=== PATIENT | female | born 1985 | race Caucasian/White ===

== ENCOUNTER 2017-10-03 16:34 | Emergency (ER) | payer OTHER, MEDICAID ==
[~2017-10-03] VITALS: Ht 165.1 cm; Wt 49.9 kg
[2017-10-03 16:36] VITALS: BP_SYST 112
--- NOTE | 2017-10-03 16:47 | NUR ---
Ambulatory to hallway bed 1. Report given to RICARDO Gutierrez
--- NOTE | 2017-10-03 17:02 | NUR ---
Pt moved from [facility] to room #3.
[2017-10-03] MEDS ORDERED: NACL 0.9% 1,000 ML IV ONE (17:19)
--- NOTE | 2017-10-03 17:25 | NUR ---
Pt arrived with upper right chest lorri-cath. Pt gave consent to use and MD alexander for use for blood drawl and med infusion.
[2017-10-03 17:28] LABS: BILIRUBIN,URINE NEGATIVE (NEGATIVE); BLOOD, URINE NEGATIVE (NEGATIVE); CLARITY/URINE CLEAR (CLEAR); COLOR,URINE YELLOW (YELLOW); GLUCOSE,URINE NEGATIVE (NEGATIVE); KETONES,URINE NEGATIVE (NEGATIVE); LEUKOCYTE ESTERASE ,URINE NEGATIVE (NEGATIVE); NITRITE, URINE NEGATIVE (NEGATIVE); PH,URINE 5.5 (5.0-8.0); PROTEIN URINE NEGATIVE (NEGATIVE); UROBILINOGEN,URINE 0.2 (0.2-1.0)
[2017-10-03] MEDS ORDERED: ONDANSETRON HCL 4 MG/2 ML VIAL IVP ONE (17:30)
[2017-10-03] MEDS ORDERED: MORPHINE 4 MG/ML INJ. SYRINGE IVP ONE ×2 (17:30→22:15)
--- NOTE | 2017-10-03 18:34 | NUR ---
ER Dr. Warner at bedside examining patient.
[2017-10-03 18:40] LABS: BASOPHILS % (AUTO) 0.2 % (0.0-2.0); EOSINOPHILS # (AUTO) 0.1 K/uL (0.0-0.4); EOSINOPHILS % (AUTO) 1.8 % (0.0-4.0); LYMPHOCYTES # (AUTO) 2.1 K/uL (1.0-5.5); MONOCYTES % (AUTO) 7.1 % (1.7-9.3); NEUTROPHILS # (AUTO) 2.4 K/uL (1.8-7.7)
[2017-10-03 18:43] LABS: HEMATOCRIT 26.9 % (36-48); HEMOGLOBIN 8.9 g/dL (12.0-16.0); LYMPHOCYTES % (AUTO) 42.1 % (20.5-51.5); MEAN CORPUSCULAR HEMOGLOBIN 29 pg (27-31); MEAN CORPUSCULAR HGB CONC 33 % (32-36); MEAN CORPUSCULAR VOLUME 88 fL (79.0-98.0); MONOCYTES # (AUTO) 0.4 K/uL (0.0-1.0); NEUTROPHILS % (AUTO) 48.8 % (40.0-70.0); PLATELET COUNT (AUTO) 290 K/uL (130-430); RED BLOOD CELL COUNT(AUTO) 3.05 MIL/uL (4.2-6.2); RED CELL DISTRIBUTION WIDTH 13.5 % (9.0-15.0)
[2017-10-03 18:56] LABS: CALCIUM 8.5 mg/dL (8.4-11.0); CREATININE 0.56 mg/dL (0.55-1.30); POTASSIUM 3.8 mmol/L (3.5-5.1)
[2017-10-03 19:00] LABS: ALBUMIN 3.6 g/dL (3.4-4.8); TOTAL BILIRUBIN 0.4 mg/dL (0.0-1.0)
[2017-10-03] MEDS ORDERED: DIPHENHYDRAMINE INJ 50 MG/ML VIAL IVP ONE ×2 (19:00→22:45)
--- NOTE | 2017-10-03 19:10 | NUR ---
Pt restig in bed. No complaints of distress of injury. Vital signs stable, endorsed to night RN.
--- NOTE | 2017-10-03 19:49 | NUR ---
ER Dr. Paredes at bedside examining patient.
[2017-10-03] MEDS ORDERED: LORazepam 2 MG/ML VIAL (FOR ER USE) ONE (20:59)
--- NOTE | 2017-10-03 21:00 | NUR ---
Patient transported off unit for CT of ABD. Accompanied by radiology staff.
--- NOTE | 2017-10-03 21:13 | NUR ---
Patient returned to unit.
[2017-10-03] MEDS ORDERED: LORazepam 2 MG/ML VIAL IVP ONE (21:30)
--- NOTE | 2017-10-03 22:25 | NUR ---
Patient found walking in hallway and speaking to other patient, re-educated and reiterated safety and fall precautions after morphine administration. Patient assisted back to bed. Will continue to monitor.
[2017-10-03] MEDS ORDERED: FAMOTIDINE PF 20 MG/2 ML VIAL IVP ONE (23:00)
[2017-10-03 23:08] VITALS: BP_SYST 110
--- NOTE | 2017-10-03 23:08 | NUR ---
Patient given written and verbal discharge instructions and verbalizes understanding. ER MD discussed with patient the results and treatment provided. Patient in stable condition. ID arm band removed. Rx of Bisacodyl given. Patient educated on pain management and to follow up with PMD. Pain Scale 3/10. Opportunity for questions provided and answered. Medication side effect fact sheet provided.
--- NOTE | 2017-10-03 23:10 | NUR ---
Patient's discharge papers were found in the trash bin when cleaning the gurney from which the patient was discharged. Incident reported to Charge Nurse Estelle SILVA and papers put into shredding bin.
--- NOTE | 2017-10-03 23:10 | NUR ---
Informed by EMT Jostin, patient discharge paperwork found in trash can following discharge.
== END 2017-10-03 23:10 | disposition home or self-care (01) ==
LOC: SED 16:34
DX: K59.00 Constipation, unspecified (principal); Z76.5 Malingerer [conscious simulation]; Z90.49 Acquired absence of other specified parts of digestive tract; Z88.0 Allergy status to penicillin; Z88.2 Allergy status to sulfonamides; Z88.6 Allergy status to analgesic agent; Z88.5 Allergy status to narcotic agent; Z91.040 Latex allergy status; Z88.8 Allergy status to other drugs, medicaments and biological substances
CPT/HCPCS: 36415; 74176; 80053; 81003; 83690; 85025; 96361; 96374; 96375; 96376; 99285; J1200; J2060; J2270; J2405; J3490; J7030

== ENCOUNTER 2017-11-18 18:19 | Inpatient (IN) | payer OTHER, MEDICAID ==
[~2017-11-18] VITALS: Ht 165.1 cm; Wt 49.9 kg
[2017-11-18 18:22] VITALS: BP_SYST 104
[2017-11-18] MEDS ORDERED: ONDANSETRON HCL 4 MG/2 ML VIAL IVP ONE (19:15)
[2017-11-18] MEDS ORDERED: NACL 0.9% 1,000 ML IV ONE (19:15)
[2017-11-18] MEDS ORDERED: fentaNYL CITRATE/PF 100 MCG/2 ML AMP IVP ONE (19:15)
[2017-11-18 19:43] LABS: BASOPHILS # (AUTO) 0.1 K/uL (0.0-0.2); MONOCYTES # (AUTO) 0.4 K/uL (0.0-1.0); RED BLOOD CELL COUNT(AUTO) 3.92 MIL/uL (4.2-6.2)
[2017-11-18 19:46] LABS: BASOPHILS % (AUTO) 2.6 % (0.0-2.0); EOSINOPHILS # (AUTO) 0.1 K/uL (0.0-0.4); EOSINOPHILS % (AUTO) 1.2 % (0.0-4.0); HEMATOCRIT 33.8 % (36-48); HEMOGLOBIN 11.3 g/dL (12.0-16.0); LYMPHOCYTES # (AUTO) 1.4 K/uL (1.0-5.5); LYMPHOCYTES % (AUTO) 32.2 % (20.5-51.5); MEAN CORPUSCULAR HEMOGLOBIN 29 pg (27-31); MEAN CORPUSCULAR HGB CONC 34 % (32-36); MEAN CORPUSCULAR VOLUME 86 fL (79.0-98.0); MONOCYTES % (AUTO) 8.5 % (1.7-9.3); NEUTROPHILS # (AUTO) 2.4 K/uL (1.8-7.7); NEUTROPHILS % (AUTO) 55.5 % (40.0-70.0); PLATELET COUNT (AUTO) 533 K/uL (130-430); RED CELL DISTRIBUTION WIDTH 16.2 % (9.0-15.0); WHITE BLOOD COUNT (AUTO) 4.4 K/uL (4.8-10.8)
[2017-11-18 19:53] LABS: CALCIUM 9.6 mg/dL (8.4-11.0); CREATININE 0.72 mg/dL (0.55-1.30)
[2017-11-18 19:55] LABS: PROTHROMBIN TIME 10.4 SECS (9.5-12.5)
[2017-11-18 19:58] LABS: ALBUMIN 3.6 g/dL (3.4-4.8); TOTAL BILIRUBIN 0.2 mg/dL (0.0-1.0)
[2017-11-18 20:15] LABS: BILIRUBIN,URINE NEGATIVE (NEGATIVE); BLOOD, URINE NEGATIVE (NEGATIVE); CLARITY/URINE HAZY (CLEAR); COLOR,URINE YELLOW (YELLOW); GLUCOSE,URINE NEGATIVE (NEGATIVE); KETONES,URINE NEGATIVE (NEGATIVE); LEUKOCYTE ESTERASE ,URINE NEGATIVE (NEGATIVE); NITRITE, URINE NEGATIVE (NEGATIVE); PH,URINE 7.5 (5.0-8.0); PROTEIN URINE TRACE (NEGATIVE); UROBILINOGEN,URINE 0.2 (0.2-1.0)
[2017-11-18 20:28] LABS: RBC,URINE NONE SEEN /HPF (0-3); WBC,URINE 0-3 /HPF (0-3)
[2017-11-18 20:29] LABS: BACTERIA,URINE MANY /HPF (None Seen); MUCUS,URINE 2+ /LPF (None Seen); URINE AMORPHOUS PHOSPHATES 1+ /HPF (None Seen)
[2017-11-18] MEDS ORDERED: MORPHINE 4 MG/ML INJ. SYRINGE IVP ONE (21:15)
[2017-11-18] MEDS ORDERED: DIPHENHYDRAMINE INJ 50 MG/ML VIAL IVP ONE (21:15)
[2017-11-18] MEDS: VANCOMYCIN HCL 250 MG CAPSULE PO SCH (22:15)
[2017-11-18] MEDS ORDERED: MORPHINE 2 MG/ML INJ. SYRINGE IVP PRN (22:15)
[2017-11-18] MEDS ORDERED: ONDANSETRON HCL 4 MG/2 ML VIAL IVP PRN (22:15)
[2017-11-18 22:25] VITALS: BP_SYST 106
[2017-11-18] MEDS ORDERED: LEVOFLOXACIN 500 MG/D5W 100 ML IV SCH (22:30)
[2017-11-18] MEDS ORDERED: LEVOFLOXACIN 500 MG/D5W 100 ML IV ONE (23:16)
[2017-11-18] MEDS: D5NS 1,000 ML IV SCH (23:59)
[2017-11-19] MEDS: MORPHINE 4 MG/ML INJ. SYRINGE IVP PRN ×6 (00:28→20:53)
[2017-11-19 08:10] VITALS: BP_SYST 97
[2017-11-19] MEDS: VANCOMYCIN HCL 250 MG CAPSULE PO SCH (08:57)
[2017-11-19] MEDS ORDERED: MORPHINE 4 MG/ML INJ. SYRINGE IVP PRN (11:30)
[2017-11-19] MEDS: DIPHENHYDRAMINE INJ 50 MG/ML VIAL IVP PRN ×2 (11:45→17:48)
[2017-11-19] MEDS: D5NS 1,000 ML IV SCH ×2 (11:45→18:15)
[2017-11-19 12:53] VITALS: BP_SYST 100
[2017-11-19 20:05] VITALS: BP_SYST 128
[2017-11-19] MEDS: LACTOBACILLUS RHAMNOSUS GG 1 CAP CAPSULE PO SCH (20:54)
[2017-11-19] MEDS: DIPHENHYDRAMINE INJ 50 MG/ML VIAL IVP SCH (21:18)
[2017-11-19] MEDS: metroNIDAZOLE 500 mg/NS 100 ML IV SCH (21:19)
[2017-11-19] MEDS ORDERED: metroNIDAZOLE 250 MG TABLET PO SCH (22:00)
[2017-11-20] MEDS: MORPHINE 4 MG/ML INJ. SYRINGE IVP PRN ×4 (01:36→13:32)
[2017-11-20] MEDS: D5NS 1,000 ML IV SCH ×2 (04:15→13:30)
[2017-11-20] MEDS: DIPHENHYDRAMINE INJ 50 MG/ML VIAL IVP SCH (06:10)
[2017-11-20] MEDS: metroNIDAZOLE 500 mg/NS 100 ML IV SCH ×2 (06:10→13:31)
[2017-11-20] MEDS: LACTOBACILLUS RHAMNOSUS GG 1 CAP CAPSULE PO SCH (08:55)
[2017-11-20 08:56] VITALS: BP_SYST 105
[2017-11-20 12:11] VITALS: BP_SYST 105
[2017-11-20] MEDS ORDERED: COMMUNICATION ORDER XX ONE (13:30)
[2017-11-20] MEDS ORDERED: FAMOTIDINE PF 20 MG/2 ML VIAL IVP ONE (13:30)
[2017-11-20] MEDS ORDERED: DIPHENHYDRAMINE INJ 50 MG/ML VIAL IVP SCH (13:55)
[2017-11-20] MEDS ORDERED: LORazepam 1 MG TABLET PO PRN (14:45)
[2017-11-20] MEDS ORDERED: FAMOTIDINE PF 20 MG/2 ML VIAL IVP SCH (22:00)
== END 2017-11-20 15:40 | disposition left against medical advice (07) | DRG 372 ==
LOC: SED 18:19 → SMU 21:58
PROVIDERS: ADMIT Internal Medicine Hospice and Palliative Medicine; ATTEND Internal Medicine Hospice and Palliative Medicine
DX: A04.71 Enterocolitis due to Clostridium difficile, recurrent (principal); N39.0 Urinary tract infection, site not specified; K86.1 Other chronic pancreatitis; K75.4 Autoimmune hepatitis; F68.10 Factitious disorder imposed on self, unspecified; F41.9 Anxiety disorder, unspecified; K21.9 Gastro-esophageal reflux disease without esophagitis; F60.9 Personality disorder, unspecified; Z96.89 Presence of other specified functional implants; Z53.21 Procedure and treatment not carried out due to patient leaving prior to being seen by health care provider; G89.4 Chronic pain syndrome; Z88.0 Allergy status to penicillin; Z88.1 Allergy status to other antibiotic agents; Z88.8 Allergy status to other drugs, medicaments and biological substances; Z88.5 Allergy status to narcotic agent; Z88.6 Allergy status to analgesic agent; Z91.040 Latex allergy status; Z90.49 Acquired absence of other specified parts of digestive tract
CPT/HCPCS: 36415; 71045; 80053; 81000-TC; 81025; 83605; 83690-TC; 84484; 85025; 85610-TC; 85730-TC; 87040-TC; 87081; 87086; 93005; 96361; 96374; 96375; 99285; J1200; J1956; J2270; J2405; J3010; J3490; J7030; J7042

== ENCOUNTER 2018-08-19 10:43 | Emergency (ER) | payer OTHER, MEDICAID ==
[~2018-08-19] VITALS: Ht 165.1 cm; Wt 49.9 kg
[2018-08-19 10:47] VITALS: BP_SYST 104
[2018-08-19] MEDS ORDERED: LORazepam 2 MG/ML VIAL (FOR ER USE) IVP ONE (11:15)
[2018-08-19] MEDS ORDERED: ONDANSETRON HCL 4 MG/2 ML VIAL IVP ONE (11:15)
[2018-08-19] MEDS ORDERED: DIPHENHYDRAMINE INJ 50 MG/ML VIAL IVP ONE (11:15)
[2018-08-19] MEDS ORDERED: NACL 0.9% 1,000 ML IV ONE (11:15)
[2018-08-19] MEDS ORDERED: FAMOTIDINE PF 20 MG/2 ML VIAL IVP ONE (11:15)
[2018-08-19 11:54] LABS: CALCIUM 8.4 mg/dL (8.4-11.0); CREATININE 0.69 mg/dL (0.55-1.30)
[2018-08-19 11:56] LABS: BASOPHILS # (AUTO) 0.1 K/uL (0.0-0.2); EOSINOPHILS # (AUTO) 0.1 K/uL (0.0-0.4); LYMPHOCYTES # (AUTO) 1.5 K/uL (1.0-5.5); MONOCYTES # (AUTO) 0.2 K/uL (0.0-1.0)
[2018-08-19 11:59] LABS: BASOPHILS % (AUTO) 1.5 % (0.0-2.0); EOSINOPHILS % (AUTO) 2.4 % (0.0-4.0); HEMATOCRIT 32.4 % (36-48); HEMOGLOBIN 10.8 g/dL (12.0-16.0); LYMPHOCYTES % (AUTO) 39.8 % (20.5-51.5); MEAN CORPUSCULAR HEMOGLOBIN 31 pg (27-31); MEAN CORPUSCULAR HGB CONC 33 % (32-36); MEAN CORPUSCULAR VOLUME 93 fL (79.0-98.0); MONOCYTES % (AUTO) 6.1 % (1.7-9.3); NEUTROPHILS % (AUTO) 50.2 % (40.0-70.0); PLATELET COUNT (AUTO) 220 K/uL (130-430); RED BLOOD CELL COUNT(AUTO) 3.48 MIL/uL (4.2-6.2); RED CELL DISTRIBUTION WIDTH 13.4 % (9.0-15.0); WHITE BLOOD COUNT (AUTO) 3.9 K/uL (4.8-10.8)
[2018-08-19 12:00] LABS: ALBUMIN 3.7 g/dL (3.4-4.8); TOTAL BILIRUBIN 0.2 mg/dL (0.0-1.0)
[2018-08-19] MEDS ORDERED: MORPHINE 4 MG/ML INJ. SYRINGE IVP ONE (12:30)
[2018-08-19 12:57] VITALS: BP_SYST 112
== END 2018-08-19 12:57 | disposition home or self-care (01) ==
LOC: SED 10:43
DX: K85.90 Acute pancreatitis without necrosis or infection, unspecified (principal); G43.709 Chronic migraine without aura, not intractable, without status migrainosus; K21.9 Gastro-esophageal reflux disease without esophagitis; Z86.2 Personal history of diseases of the blood and blood-forming organs and certain disorders involving the immune mechanism; Z90.49 Acquired absence of other specified parts of digestive tract; Z88.1 Allergy status to other antibiotic agents; Z88.0 Allergy status to penicillin; Z88.2 Allergy status to sulfonamides; Z88.5 Allergy status to narcotic agent; Z88.6 Allergy status to analgesic agent; Z91.040 Latex allergy status; Z88.8 Allergy status to other drugs, medicaments and biological substances
CPT/HCPCS: 36415; 80053; 83690; 85025; 96361; 96374; 96375; 99283; J1200; J2060; J2270; J2405; J3490; J7030

== ENCOUNTER 2018-09-03 09:54 | Emergency (ER) | payer OTHER, MEDICAID ==
[~2018-09-03] VITALS: Ht 165.1 cm; Wt 50.8 kg
[2018-09-03 09:55] VITALS: BP_SYST 119
--- NOTE | 2018-09-03 09:55 | NUR ---
BROUGHT BACK TO BED #5 AND TRIAGED. REPORT GIVEN TO DUC
--- NOTE | 2018-09-03 10:00 | NUR ---
PATIENT SITTING UP ON BED. NO SOB. NO CHEST PAIN. PATIENT IN NO ACUTE DISTRESS. NO OBJECTIVE S/SX OF PAIN OBSERVED. PT WITH C/O HEADACHE, RIGHT FLANK PAIN, AND EPIGASTRIC DISCOMFORT x4 DAYS. +NAUSEA, +VOMITING. NO DIARRHEA. NO FEVERS. PT ALSO REQUESTING A NEEDLE CHANGE FOR HER PORT-A-CATH. PATIENT RESTING COMFORTABLY ON BED. REST, RELAXATION, AND DEEP BREATHING ENCOURAGED. MD AWARE OF PT CONDITION AND CHIEF COMPLAINT. WILL CONTINUE TO MONITOR.
--- NOTE | 2018-09-03 10:10 | NUR ---
IRMA BHATIA at bedside examining patient.
[2018-09-03] MEDS ORDERED: NACL 0.9% 1,000 ML IV ONE (10:15)
[2018-09-03] MEDS ORDERED: MORPHINE 4 MG/ML INJ. SYRINGE IVP ONE ×2 (10:15→11:15)
--- NOTE | 2018-09-03 10:40 | NUR ---
IV FLUIDS OF NS STARTED PER MD ORDERS. TOLERATED WELL. MORPHINE ADMINISTERED FOR PAIN. TOLERATED WELL. WILL CONTINUE TO MONITOR. SIDERAILS UP x2. PATIENT PLACED ON O2 MONITOR.
--- NOTE | 2018-09-03 10:45 | NUR ---
BLOOD SPECIMENS COLLECTED FROM PT'S PORT-A-CATH. TOLERATED WELL. BLOOD SPECIMENS SENT TO LAB. PORT-A-CATH FLUSHED WITH 10ML NS; PATENT. TOLERATED WELL.
[2018-09-03 10:57] LABS: BASOPHILS % (AUTO) 0.5 % (0.0-2.0); EOSINOPHILS # (AUTO) 0.1 K/uL (0.0-0.4); EOSINOPHILS % (AUTO) 2.9 % (0.0-4.0); HEMATOCRIT 34.3 % (36-48); HEMOGLOBIN 11.4 g/dL (12.0-16.0); LYMPHOCYTES # (AUTO) 1.4 K/uL (1.0-5.5); LYMPHOCYTES % (AUTO) 37.7 % (20.5-51.5); MEAN CORPUSCULAR HEMOGLOBIN 31 pg (27-31); MEAN CORPUSCULAR HGB CONC 33 % (32-36); MEAN CORPUSCULAR VOLUME 93 fL (79.0-98.0); MONOCYTES # (AUTO) 0.3 K/uL (0.0-1.0); MONOCYTES % (AUTO) 7.5 % (1.7-9.3); NEUTROPHILS % (AUTO) 51.4 % (40.0-70.0); PLATELET COUNT (AUTO) 227 K/uL (130-430); RED CELL DISTRIBUTION WIDTH 12.9 % (9.0-15.0); WHITE BLOOD COUNT (AUTO) 3.8 K/uL (4.8-10.8)
[2018-09-03 11:03] LABS: CALCIUM 8.7 mg/dL (8.4-11.0); CREATININE 0.53 mg/dL (0.55-1.30); POTASSIUM 4.3 mmol/L (3.5-5.1)
[2018-09-03 11:08] LABS: ALBUMIN 3.8 g/dL (3.4-4.8); TOTAL BILIRUBIN 0.4 mg/dL (0.0-1.0)
[2018-09-03] MEDS ORDERED: FAMOTIDINE 20 MG TABLET PO ONE (11:15)
[2018-09-03] MEDS ORDERED: DIPHENHYDRAMINE INJ 50 MG/ML VIAL IVP ONE (11:15)
[2018-09-03] MEDS ORDERED: FAMOTIDINE PF 20 MG/2 ML VIAL IVP ONE (11:30)
--- NOTE | 2018-09-03 11:40 | NUR ---
MORPHINE, BENADRYL, AND PEPCID IVP ADMINISTERED. TOLERATED WELL. WILL CONTINUE TO MONITOR.
--- NOTE | 2018-09-03 11:50 | NUR ---
PATIENT VERBALIZED RELIEF FROM NAUSEA AND EPIGASTRIC DISCOMFORT. NO EPISODE OF VOMITING. WILL CONTINUE TO MONITOR.
--- NOTE | 2018-09-03 12:00 | NUR ---
PER PT REQUEST, RIGHT UPPER CHEST PORT-A-CATH NEEDLE CHANGED TO A 20G x 1.0 INCH MINILOC NEEDLE VIA STERILE TECHNIQUE. TOLERATED WELL. PORT-A-CATH NOTED WITH GOOD BLOOD RETURN. FLUSHED WITH 20ML OF NS. TOLERATED WELL.
[2018-09-03 12:10] VITALS: BP_SYST 123
--- NOTE | 2018-09-03 12:10 | NUR ---
Patient given written and verbal discharge instructions and verbalizes understanding. ER MD discussed with patient the results and treatment provided. Patient in stable condition. ID arm band removed. Rx OF PECID AND NORCO given, BUT PT REFUSED PRESCRIPTIONS. PT STATES, "I DON'T NEED THEM." DR. BHATIA MADE AWARE. Patient educated on pain management and to follow up with PMD. Pain Scale 7/10; TOLERABLE VERBALIZED. NO OBJECTIVE S/SX OF PAIN OBSERVED. Opportunity for questions provided and answered. Medication side effect fact sheet provided. PATIENT IN NO ACUTE DISTRESS AND IN GOOD CONDITION. PT NOTED WITH A STABLE GAIT.
== END 2018-09-03 12:10 | disposition home or self-care (01) ==
LOC: SED 09:54
DX: K86.1 Other chronic pancreatitis (principal); R11.2 Nausea with vomiting, unspecified; K21.9 Gastro-esophageal reflux disease without esophagitis; Z86.2 Personal history of diseases of the blood and blood-forming organs and certain disorders involving the immune mechanism; Z90.49 Acquired absence of other specified parts of digestive tract; Z88.0 Allergy status to penicillin; Z88.1 Allergy status to other antibiotic agents; Z88.2 Allergy status to sulfonamides; Z88.5 Allergy status to narcotic agent; Z88.6 Allergy status to analgesic agent; Z91.040 Latex allergy status; Z88.8 Allergy status to other drugs, medicaments and biological substances
CPT/HCPCS: 36415; 80053; 81002; 81025; 83690; 85025; 96374; 96375; 96376; 99283; J1200; J2270; J3490; J7030

== ENCOUNTER 2018-09-27 13:55 | Emergency (ER) | payer OTHER, MEDICAID ==
[~2018-09-27] VITALS: Ht 165.1 cm; Wt 49.9 kg
[2018-09-27 14:10] VITALS: BP_SYST 100
--- NOTE | 2018-09-27 14:18 | NUR ---
Patient triaged and placed in waiting room. VSS and patient appears in no acute distress at this time. Accompanied by self, awaiting available bed, and MD notified of need for MSE.
[2018-09-27 16:14] LABS: CALCIUM 8.5 mg/dL (8.4-11.0); CREATININE 0.64 mg/dL (0.55-1.30); POTASSIUM 4.2 mmol/L (3.5-5.1)
[2018-09-27 16:17] LABS: ALBUMIN 3.9 g/dL (3.4-4.8); EOSINOPHILS % (AUTO) 1.9 % (0.0-4.0); HEMATOCRIT 33.6 % (36-48); HEMOGLOBIN 11.2 g/dL (12.0-16.0); LYMPHOCYTES % (AUTO) 37.5 % (20.5-51.5); MEAN CORPUSCULAR HEMOGLOBIN 31 pg (27-31); MEAN CORPUSCULAR HGB CONC 33 % (32-36); MEAN CORPUSCULAR VOLUME 91 fL (79.0-98.0); MONOCYTES % (AUTO) 5.4 % (1.7-9.3); NEUTROPHILS % (AUTO) 54.7 % (40.0-70.0); PLATELET COUNT (AUTO) 227 K/uL (130-430); RED BLOOD CELL COUNT(AUTO) 3.69 MIL/uL (4.2-6.2); RED CELL DISTRIBUTION WIDTH 13.5 % (9.0-15.0); TOTAL BILIRUBIN 0.2 mg/dL (0.0-1.0); WHITE BLOOD COUNT (AUTO) 5.3 K/uL (4.8-10.8)
[2018-09-27 16:18] LABS: BASOPHILS % (AUTO) 0.5 % (0.0-2.0); EOSINOPHILS # (AUTO) 0.1 K/uL (0.0-0.4); MONOCYTES # (AUTO) 0.3 K/uL (0.0-1.0); NEUTROPHILS # (AUTO) 2.9 K/uL (1.8-7.7)
--- NOTE | 2018-09-27 18:00 | NUR ---
Patient to ER bed 04 to gown for evaluation. Side rails up.
--- NOTE | 2018-09-27 18:12 | NUR ---
Patient is awake, alert, and oriented x4. Patient is complaining of pancreatitis, rapid heart rate. History of migraines, auto-immune pancreatitis, and malabsorption. Patient is complaining of sharp shooting epigastric pain 04/14 for 3 days. Addendum: 09/27/18 at 1814 by [email or web address] Port-a-cath to right chest.
--- NOTE | 2018-09-27 18:13 | NUR ---
ER Dr. Miranda at bedside examining patient.
[2018-09-27] MEDS ORDERED: ONDANSETRON HCL 4 MG/2 ML VIAL IVP ONE (18:30)
[2018-09-27] MEDS ORDERED: MORPHINE 4 MG/ML INJ. SYRINGE IVP ONE (18:30)
[2018-09-27 18:33] LABS: BILIRUBIN,URINE NEGATIVE (NEGATIVE); BLOOD, URINE 1+ (NEGATIVE); CLARITY/URINE CLEAR (CLEAR); COLOR,URINE YELLOW (YELLOW); GLUCOSE,URINE NEGATIVE (NEGATIVE); KETONES,URINE NEGATIVE (NEGATIVE); LEUKOCYTE ESTERASE ,URINE NEGATIVE (NEGATIVE); NITRITE, URINE NEGATIVE (NEGATIVE); PH,URINE 6.5 (5.0-8.0); PROTEIN URINE NEGATIVE (NEGATIVE); UROBILINOGEN,URINE 0.2 (0.2-1.0)
[2018-09-27 18:39] LABS: BACTERIA,URINE FEW /HPF (None Seen); WBC,URINE 0-3 /HPF (0-3)
[2018-09-27] MEDS ORDERED: DIPHENHYDRAMINE INJ 50 MG/ML VIAL IVP ONE (19:00)
--- NOTE | 2018-09-27 19:13 | NUR ---
Report given to RICARDO Richardson for continuation of care.
[2018-09-27] MEDS ORDERED: LORazepam 2 MG/ML VIAL (FOR ER USE) IVP ONE (21:00)
[2018-09-27 21:15] VITALS: BP_SYST 130
--- NOTE | 2018-09-27 21:15 | NUR ---
Patient given written and verbal discharge instructions and verbalizes understanding. ER MD discussed with patient the results and treatment provided. Patient in stable condition. ID arm band removed. no Rx of given. Patient educated on pain management and to follow up with PMD. Pain Scale 4/10. Opportunity for questions provided and answered. Medication side effect fact sheet provided.
== END 2018-09-27 21:15 | disposition home or self-care (01) ==
LOC: SED 13:55
DX: K85.90 Acute pancreatitis without necrosis or infection, unspecified (principal); R07.89 Other chest pain; K21.9 Gastro-esophageal reflux disease without esophagitis; Z86.2 Personal history of diseases of the blood and blood-forming organs and certain disorders involving the immune mechanism; Z90.49 Acquired absence of other specified parts of digestive tract; Z88.0 Allergy status to penicillin; Z88.1 Allergy status to other antibiotic agents; Z88.2 Allergy status to sulfonamides; Z88.5 Allergy status to narcotic agent; Z88.6 Allergy status to analgesic agent; Z91.040 Latex allergy status; Z79.899 Other long term (current) drug therapy
CPT/HCPCS: 36415; 80053; 81000; 81025; 83690; 85025; 93005; 96374; 96375; 99284; J1200; J2060; J2270; J2405

== ENCOUNTER 2018-11-20 17:49 | Emergency (ER) | payer OTHER, MEDICAID ==
[~2018-11-20] VITALS: Ht 165.1 cm; Wt 51.3 kg
[2018-11-20 17:50] VITALS: BP_SYST 122
--- NOTE | 2018-11-20 17:50 | NUR ---
Patient to ER bed 8 for evaluation.
--- NOTE | 2018-11-20 17:55 | NUR ---
Patient to ER via triage for evaluation of right sided flank pain, along with dysuria, nausea/vomiting. Patient is awake, alert and oriented in no acute distress, HR elevated but vital signs otherwise stable, respirations even and unlabored, skin warm and dry to touch. Patient able to ambulate to bed 8 without difficulty with slow, steady gait. Patient provided urine sample which was sent to lab. Awaiting evaluation by ER MD, will continue to observe and assess.
[2018-11-20 18:15] LABS: BILIRUBIN,URINE NEGATIVE (NEGATIVE); BLOOD, URINE TRACE (NEGATIVE); CLARITY/URINE SL CLOUDY (CLEAR); COLOR,URINE YELLOW (YELLOW); GLUCOSE,URINE NEGATIVE (NEGATIVE); KETONES,URINE NEGATIVE (NEGATIVE); LEUKOCYTE ESTERASE ,URINE NEGATIVE (NEGATIVE); NITRITE, URINE NEGATIVE (NEGATIVE); PROTEIN URINE NEGATIVE (NEGATIVE); UROBILINOGEN,URINE 0.2 (0.2-1.0)
--- NOTE | 2018-11-20 18:15 | NUR ---
ER at bedside examining patient.
[2018-11-20 18:20] LABS: BACTERIA,URINE FEW /HPF (None Seen); RBC,URINE 0-3 /HPF (0-3); WBC,URINE 0-3 /HPF (0-3)
--- NOTE | 2018-11-20 18:25 | NUR ---
Family at bedside, lights dimmed for patient comfort. Awaiting dispo, will continue to observe and assess.
[2018-11-20] MEDS ORDERED: NALBUPHINE HCL 10 MG/ML AMP IVP ONE (18:30)
[2018-11-20] MEDS ORDERED: NACL 0.9% 1,000 ML IV ONE (18:30)
--- NOTE | 2018-11-20 18:47 | NUR ---
Patient of the floor going to CT scan.
--- NOTE | 2018-11-20 18:55 | NUR ---
Patient returned from CT scan in stable condition via [facility]herwood.
[2018-11-20 18:56] LABS: BARBITURATE, URINE NEGATIVE (NEG <=200); BENZODIAZEPINE, URINE POSITIVE (NEG <=150); CANNABINOID, URINE NEGATIVE (NEG <=50); COCAINE, URINE NEGATIVE (NEG <=150); METHAMPHETAMINES SCREEN,URINE NEGATIVE (NEG <=500); OPIATE, URINE POSITIVE (NEG <=100); PHENCYCLIDINE SCREEN,URINE NEGATIVE (NEG <=25); UR TRICYCLIC ANTIDEPRESSANTS NEGATIVE (NEG <=300); URINE AMPHETAMINE NEGATIVE (NEG <=500); URINE METHADONE NEGATIVE (NEG <=200); URINE OXYCODONE SCREEN NEGATIVE (NEG <=100); URINE PROPOXYPHENE SCREEN NEGATIVE (NEG <=300)
--- NOTE | 2018-11-20 19:30 | NUR ---
Patient arrives to ER with Verenice-Cath to right chest which has been accessed prior to arrival. Patient reports that her home health nurse accessed it yesterday. Blood specimens obtained and sent to lab. IV fluids infusing without difficulty.
--- NOTE | 2018-11-20 19:45 | NUR ---
Dr Morley at bedside speaking with patient/family, awaiting results and dispo.
[2018-11-20 19:55] LABS: BASOPHILS % (AUTO) 0.5 % (0.0-2.0); EOSINOPHILS # (AUTO) 0.1 K/uL (0.0-0.4); EOSINOPHILS % (AUTO) 1.3 % (0.0-4.0); HEMATOCRIT 32.2 % (36-48); HEMOGLOBIN 10.9 g/dL (12.0-16.0); LYMPHOCYTES # (AUTO) 2.2 K/uL (1.0-5.5); LYMPHOCYTES % (AUTO) 37.7 % (20.5-51.5); MEAN CORPUSCULAR HEMOGLOBIN 31 pg (27-31); MEAN CORPUSCULAR HGB CONC 34 % (32-36); MEAN CORPUSCULAR VOLUME 93 fL (79.0-98.0); MONOCYTES # (AUTO) 0.4 K/uL (0.0-1.0); MONOCYTES % (AUTO) 7.4 % (1.7-9.3); NEUTROPHILS # (AUTO) 3.1 K/uL (1.8-7.7); NEUTROPHILS % (AUTO) 53.1 % (40.0-70.0); PLATELET COUNT (AUTO) 238 K/uL (130-430); RED BLOOD CELL COUNT(AUTO) 3.48 MIL/uL (4.2-6.2); RED CELL DISTRIBUTION WIDTH 14.9 % (9.0-15.0); WHITE BLOOD COUNT (AUTO) 5.8 K/uL (4.8-10.8)
--- NOTE | 2018-11-20 19:55 | NUR ---
Patient up ambulating to bathroom without difficulty with slow, steady gait. Awaiting results and dispo.
--- NOTE | 2018-11-20 20:05 | NUR ---
Patient reports no change in pain, however, patient is able to ambulate without difficulty with slow, steady gait. Respirations are slow, and even. IV fluids infusing without difficulty, awaiting lab results and dispo.
[2018-11-20 20:15] LABS: CALCIUM 8.9 mg/dL (8.4-11.0); CREATININE 0.57 mg/dL (0.55-1.30); POTASSIUM 3.7 mmol/L (3.5-5.1)
[2018-11-20 20:20] LABS: ALBUMIN 3.5 g/dL (3.4-4.8); TOTAL BILIRUBIN 0.3 mg/dL (0.0-1.0)
[2018-11-20] MEDS ORDERED: FAMOTIDINE 20 MG TABLET PO ONE (20:30)
[2018-11-20] MEDS ORDERED: MORPHINE 4 MG/ML INJ. SYRINGE IVP ONE (20:45)
--- NOTE | 2018-11-20 20:45 | NUR ---
Patient resting quietly in no acute distress, IV fluids infusing without difficulty.
--- NOTE | 2018-11-20 21:15 | NUR ---
Patient up ambulating in hallway without difficulty with slow, steady gait. Patient reports that she is having a rash that is itching. Dr Morley is speaking with patient at length, order for Benadryl 25 mg IM received. No respiratory distress noted.
[2018-11-20] MEDS ORDERED: DIPHENHYDRAMINE INJ 50 MG/ML VIAL IM ONE (21:30)
--- NOTE | 2018-11-20 21:30 | NUR ---
Patient placing multiple patches on body to relieve general body aches. These were brought in by patient and not supplied by ER. Patient also seen going through drawers in room 8.
[2018-11-20 21:45] VITALS: BP_SYST 110
--- NOTE | 2018-11-20 21:45 | NUR ---
Patient given written and verbal discharge instructions and verbalizes understanding. ER MD discussed with patient the results and treatment provided. Patient in stable condition. ID arm band removed. No RX given. Patient educated on pain management and to follow up with PMD. Pain Scale 2. Opportunity for questions provided and answered. Medication side effect fact sheet provided. Patient left ER in no acute distress, able to ambulate without difficulty with slow, steady gait with family at her side. No adverse reaction noted to medication.
== END 2018-11-20 21:45 | disposition home or self-care (01) ==
LOC: SED 17:49
DX: R10.9 Unspecified abdominal pain (principal); K21.9 Gastro-esophageal reflux disease without esophagitis; Z86.2 Personal history of diseases of the blood and blood-forming organs and certain disorders involving the immune mechanism; Z88.0 Allergy status to penicillin; Z88.1 Allergy status to other antibiotic agents; Z88.2 Allergy status to sulfonamides; Z88.5 Allergy status to narcotic agent; Z88.6 Allergy status to analgesic agent; Z91.040 Latex allergy status; Z88.8 Allergy status to other drugs, medicaments and biological substances
CPT/HCPCS: 36415; 74176; 80053; 80307; 81000; 83690; 85025; 96372; 96374; 96375; 99284; J1200; J2270; J2300; J7030

== ENCOUNTER 2019-12-27 11:24 | Emergency (ER) | payer OTHER, MEDICAID ==
[~2019-12-27] VITALS: Ht 162.6 cm; Wt 49.9 kg
[2019-12-27 11:24] VITALS: BP_SYST 140
--- NOTE | 2019-12-27 11:24 | NUR ---
BROUGHT BACK TO BED #6 AND TRIAGED. REPORT GIVEN TO BETTY
--- NOTE | 2019-12-27 11:26 | NUR ---
Patient arrived in the ED c/o abdominal pain, hemoptysis, bleeding ulcer, fevers, diarrhea, nausea and vomiting. Denied any chest pain or shortness of breath. Patient is alert and oriented x4, respirations even and unlabored, speaking in full sentences, and ambulating with a steady gait. VSS, pain level 9/10. Informed of the approximate wait time. Instructed to notify ED staff for any changes in condition or worsening of symptoms. Patient verbalized understanding.
--- NOTE | 2019-12-27 11:55 | NUR ---
ER Dr. Sesay at bedside examining patient.
[2019-12-27] MEDS ORDERED: fentaNYL CITRATE/PF 100 MCG/2 ML AMP IVP ONE (12:00)
[2019-12-27] MEDS ORDERED: NACL 0.9% 1,000 ML IV ONE (12:00)
[2019-12-27] MEDS ORDERED: ONDANSETRON HCL 4 MG/2 ML VIAL IVP ONE (12:00)
[2019-12-27] MEDS ORDERED: FAMOTIDINE PF 20 MG/2 ML VIAL IVP ONE (12:00)
--- NOTE | 2019-12-27 12:10 | NUR ---
Administered NS, Pepcid, Zofran, Fentanyl IVP as ordered by Dr. Sesay. Patient tolerated the medications well. See eMAR for details.
[2019-12-27] MEDS ORDERED: FAMOTIDINE PF 20 MG/2 ML VIAL ONE (12:42)
[2019-12-27] MEDS ORDERED: MORPHINE 2 MG/ML INJ. SYRINGE IVP ONE (12:45)
--- NOTE | 2019-12-27 13:20 | NUR ---
Administered Benadryl and Morphine Sulfate IVP as ordered by Dr. Sesay. Patient tolerated the medications well. See eMAR for details.
[2019-12-27] MEDS ORDERED: DIPHENHYDRAMINE INJ 50 MG/ML VIAL ONE (13:24)
[2019-12-27] MEDS ORDERED: DIPHENHYDRAMINE INJ 50 MG/ML VIAL IVP ONE (13:30)
[2019-12-27 13:35] LABS: BASOPHILS % (AUTO) 0.5 % (0.0-2.0); EOSINOPHILS % (AUTO) 0.9 % (0.0-4.0); HEMATOCRIT 39.3 % (36-48); HEMOGLOBIN 12.8 g/dL (12.0-16.0); LYMPHOCYTES # (AUTO) 1.7 K/uL (1.0-5.5); LYMPHOCYTES % (AUTO) 31.1 % (20.5-51.5); MEAN CORPUSCULAR HEMOGLOBIN 29 pg (27-31); MEAN CORPUSCULAR HGB CONC 33 % (32-36); MEAN CORPUSCULAR VOLUME 90 fL (79.0-98.0); MONOCYTES # (AUTO) 0.3 K/uL (0.0-1.0); MONOCYTES % (AUTO) 4.9 % (1.7-9.3); NEUTROPHILS # (AUTO) 3.3 K/uL (1.8-7.7); NEUTROPHILS % (AUTO) 62.6 % (40.0-70.0); PLATELET COUNT (AUTO) 210 K/uL (130-430); RED BLOOD CELL COUNT(AUTO) 4.38 MIL/uL (4.2-6.2); RED CELL DISTRIBUTION WIDTH 14.3 % (9.0-15.0); WHITE BLOOD COUNT (AUTO) 5.4 K/uL (4.8-10.8)
[2019-12-27 13:45] LABS: CALCIUM 8.2 mg/dL (8.4-11.0); CREATININE 0.72 mg/dL (0.55-1.30)
[2019-12-27 13:50] LABS: TOTAL BILIRUBIN 0.2 mg/dL (0.0-1.0)
[2019-12-27] MEDS ORDERED: LORazepam 2 MG/ML VIAL IVP ONE (14:15)
--- NOTE | 2019-12-27 14:17 | NUR ---
Administered Ativan IVP as ordered by Dr. Sesay. Patient tolerated the medications well. See eMAR for details.
--- NOTE | 2019-12-27 15:07 | NUR ---
Patient does not wish to proceed with medical care recommended by Dr. Sesay. Patient given information related to possible complications, up to and including , which could occur as a result of leaving hospital at this time. Patient verbalizes understanding of risks involved leaving against medical advice. Patient has signed AMA form.
[2019-12-27 15:11] VITALS: BP_SYST 140
== END 2019-12-27 15:07 | disposition left against medical advice (07) ==
LOC: SED 11:24
DX: R10.13 Epigastric pain (principal); G43.909 Migraine, unspecified, not intractable, without status migrainosus; R11.10 Vomiting, unspecified; K21.9 Gastro-esophageal reflux disease without esophagitis; Z88.1 Allergy status to other antibiotic agents; Z88.0 Allergy status to penicillin; Z88.2 Allergy status to sulfonamides; Z88.6 Allergy status to analgesic agent; Z91.040 Latex allergy status; Z88.8 Allergy status to other drugs, medicaments and biological substances; Z90.49 Acquired absence of other specified parts of digestive tract
CPT/HCPCS: 36415; 80053; 81002; 83690; 85025; 86870; 86886; 86900; 86901; 96361; 96374; 96375; 99284; J1200; J2060; J2270; J2405; J3010; J3490; J7030

== ENCOUNTER 2019-12-31 07:46 | Emergency (ER) | payer OTHER, MEDICAID ==
[~2019-12-31] VITALS: Ht 165.1 cm; Wt 52.2 kg
[2019-12-31 07:46] VITALS: BP_SYST 118
--- NOTE | 2019-12-31 07:46 | NUR ---
Patient to ER bed 7 to gown for evaluation. Side rails up.
--- NOTE | 2019-12-31 07:50 | NUR ---
Pt came to ER c/o abd pain, DAMON 05/14. Pt states nausea but has no episodes of vomiting at this time. VSS, ressting in [facility], awaiting .
--- NOTE | 2019-12-31 08:04 | NUR ---
Note ashvin in ED - 12/31/19 at 0805 by [email or web address] Patient to ER bed 7 to gown for evaluation. Side rails up.
--- NOTE | 2019-12-31 08:06 | NUR ---
ER at bedside examining patient.
--- NOTE | 2019-12-31 08:11 | NUR ---
DR BEAN SPEAKING WITH PT ABOUT PTS PAIN. PT STATES SHE NEEDS NARCOTICS, DR BEAN OFFERED TO DO BLOOD WORK. PT BEGGING FOR OPIODS AND ANY NARCOTICS, DR BEAN STATES AFTER BLOOD WORK, WE WOULD RE-EVALUATE. PT STATES "NO THANK YOU" AND DECIDED TO LEAVE. PT ELOPED AFTER BEING SEEN BY DR BEAN.
--- NOTE | 2019-12-31 08:17 | NUR ---
TEMPLATE LAYOUT WORKER FOR BREAST EXAM ON PATIENT. Addendum: 12/31/19 at 0823 by NUBIA BREAST EXAM DONE AT 0808
[2019-12-31 08:22] VITALS: BP_SYST 118
--- NOTE | 2019-12-31 08:23 | NUR ---
Pt eloped after MD examination.
== END 2019-12-31 08:23 | disposition left against medical advice (07) ==
LOC: SED 07:46
DX: N64.4 Mastodynia (principal); M54.2 Cervicalgia; F11.90 Opioid use, unspecified, uncomplicated; K21.9 Gastro-esophageal reflux disease without esophagitis; Z86.2 Personal history of diseases of the blood and blood-forming organs and certain disorders involving the immune mechanism; Z88.0 Allergy status to penicillin; Z88.1 Allergy status to other antibiotic agents; Z88.2 Allergy status to sulfonamides; Z88.5 Allergy status to narcotic agent; Z88.6 Allergy status to analgesic agent; Z91.040 Latex allergy status
CPT/HCPCS: 99281; J7030

== ENCOUNTER 2020-02-23 19:34 | Emergency (ER) | payer OTHER, MEDICAID ==
[~2020-02-23] VITALS: Ht 165.1 cm; Wt 54.4 kg
[2020-02-23 19:34] VITALS: BP_SYST 115
--- NOTE | 2020-02-23 19:34 | NUR ---
Patient triaged and placed in waiting room. VSS and patient appears in no acute distress at this time. Awaiting available bed, and MD notified of need for MSE.
[2020-02-23 20:26] LABS: BILIRUBIN,URINE NEGATIVE (NEGATIVE); BLOOD, URINE 3+ (NEGATIVE); GLUCOSE,URINE NEGATIVE (NEGATIVE); KETONES,URINE NEGATIVE (NEGATIVE); LEUKOCYTE ESTERASE ,URINE NEGATIVE (NEGATIVE); NITRITE, URINE NEGATIVE (NEGATIVE); PROTEIN URINE NEGATIVE (NEGATIVE); UROBILINOGEN,URINE 0.2 (0.2-1.0)
[2020-02-23 20:37] LABS: CLARITY/URINE HAZY (CLEAR); COLOR,URINE STRAW (YELLOW)
[2020-02-23 20:38] LABS: BASOPHILS % (AUTO) 0.3 % (0.0-2.0); EOSINOPHILS # (AUTO) 0.1 K/uL (0.0-0.4); EOSINOPHILS % (AUTO) 1.7 % (0.0-4.0); HEMATOCRIT 36.3 % (36-48); HEMOGLOBIN 11.9 g/dL (12.0-16.0); LYMPHOCYTES # (AUTO) 1.6 K/uL (1.0-5.5); MEAN CORPUSCULAR HEMOGLOBIN 29 pg (27-31); MEAN CORPUSCULAR HGB CONC 33 % (32-36); MEAN CORPUSCULAR VOLUME 89 fL (79.0-98.0); MONOCYTES # (AUTO) 0.3 K/uL (0.0-1.0); MONOCYTES % (AUTO) 7.1 % (1.7-9.3); NEUTROPHILS # (AUTO) 2.3 K/uL (1.8-7.7); NEUTROPHILS % (AUTO) 53.9 % (40.0-70.0); PLATELET COUNT (AUTO) 251 K/uL (130-430); RED BLOOD CELL COUNT(AUTO) 4.09 MIL/uL (4.2-6.2); RED CELL DISTRIBUTION WIDTH 14.8 % (9.0-15.0); WHITE BLOOD COUNT (AUTO) 4.3 K/uL (4.8-10.8)
[2020-02-23 20:50] LABS: CALCIUM 9.3 mg/dL (8.4-11.0); CREATININE 0.72 mg/dL (0.55-1.30); POTASSIUM 4.1 mmol/L (3.5-5.1)
[2020-02-23 21:02] LABS: TOTAL BILIRUBIN 0.2 mg/dL (0.0-1.0)
[2020-02-23 21:07] LABS: RBC,URINE 50-80 /HPF (0-3)
[2020-02-23 21:08] LABS: BACTERIA,URINE MODERATE /HPF (None Seen)
[2020-02-23 21:10] LABS: MUCUS,URINE 1+ /LPF (None Seen)
--- NOTE | 2020-02-23 21:20 | NUR ---
Patient to ER bed 2 to gown for evaluation. Side rails up. ASSUMED CARE OF PT.
--- NOTE | 2020-02-23 21:23 | NUR ---
ER Dr. ARZATE at bedside examining patient.
--- NOTE | 2020-02-23 21:40 | NUR ---
PT AAO AND AMBULATORY C/O EPIGASTIC, ABDOMNIAL, AND RECTAL BLEEDING FOR PAST FIVE DAYS. PT ALSO REPORTS HEADACHE AND FATIGUE RECENTLY.
[2020-02-23] MEDS ORDERED: MORPHINE 4 MG/ML INJ. SYRINGE IVP ONE (21:45)
[2020-02-23] MEDS ORDERED: ONDANSETRON HCL 4 MG/2 ML VIAL IVP ONE (21:45)
[2020-02-23] MEDS ORDERED: NACL 0.9% 1,000 ML IV ONE (22:15)
[2020-02-23 22:23] LABS: INR 1.1 (0.8-1.2); PROTHROMBIN TIME 10.9 SECS (9.5-12.5)
[2020-02-23] MEDS ORDERED: DIPHENHYDRAMINE INJ 50 MG/ML VIAL IVP ONE (22:30)
--- NOTE | 2020-02-23 22:30 | NUR ---
AASISTED DR. ARZATE WITH GUAIAC AND PELVIC.
--- NOTE | 2020-02-23 22:35 | NUR ---
PT REPORTS SOME PAIN RELEIEF, WILL CONTINUE TO MONITOR.
--- NOTE | 2020-02-23 22:50 | NUR ---
PT TO RADIOLOGY FOR U/S.
--- NOTE | 2020-02-23 23:25 | NUR ---
PT BACK FROM RADIOLOGY, AMBULATED TO RESTROOM. PT IN NO APPARENT DISTRESS.
[2020-02-24] MEDS ORDERED: MORPHINE 4 MG/ML INJ. SYRINGE IVP ONE
[2020-02-24] MEDS ORDERED: DIPHENHYDRAMINE INJ 50 MG/ML VIAL IVP ONE
[2020-02-24 01:00] VITALS: BP_SYST 120
--- NOTE | 2020-02-24 01:00 | NUR ---
Patient given written and verbal discharge instructions and verbalizes understanding. DR. HUEY SOLIS MD discussed with patient the results and treatment provided. Patient in stable condition. ID arm band removed. Patient educated on pain management and to follow up with PMD. Pain Scale PT WILL NOT STATE. LEFT ERRATIC. Opportunity for questions provided and answered.
== END 2020-02-24 01:00 | disposition home or self-care (01) ==
LOC: SED 19:34
DX: R10.84 Generalized abdominal pain (principal); R11.10 Vomiting, unspecified; K21.9 Gastro-esophageal reflux disease without esophagitis; Z90.49 Acquired absence of other specified parts of digestive tract; Z86.2 Personal history of diseases of the blood and blood-forming organs and certain disorders involving the immune mechanism; Z88.0 Allergy status to penicillin; Z88.1 Allergy status to other antibiotic agents; Z88.2 Allergy status to sulfonamides; Z88.6 Allergy status to analgesic agent; Z88.8 Allergy status to other drugs, medicaments and biological substances; Z91.040 Latex allergy status; Z88.5 Allergy status to narcotic agent
CPT/HCPCS: 36415; 76830; 76857; 80053; 81000; 82272; 83690; 84702; 85025; 85610; 85730; 87086; 96361; 96374; 96375; 96376; 99284; J1200 ×2; J2270 ×2; J2405; J7030

== ENCOUNTER 2020-07-16 13:20 | Emergency (ER) | payer OTHER, MEDICAID ==
[~2020-07-16] VITALS: Ht 160 cm; Wt 61.2 kg
[2020-07-16 14:09] VITALS: BP_SYST 101
--- NOTE | 2020-07-16 14:09 | NUR ---
TRIAGED IN TENT
--- NOTE | 2020-07-16 15:12 | NUR ---
Patient left without being seen. BY
== END 2020-07-16 15:12 | disposition left against medical advice (07) ==
LOC: SED 13:20
DX: R10.84 Generalized abdominal pain (principal); K21.9 Gastro-esophageal reflux disease without esophagitis; Z88.8 Allergy status to other drugs, medicaments and biological substances; Z91.040 Latex allergy status; Z88.6 Allergy status to analgesic agent; Z88.0 Allergy status to penicillin; Z88.1 Allergy status to other antibiotic agents
CPT/HCPCS: 99281

== ENCOUNTER 2020-10-11 11:36 | Emergency (ER) | payer OTHER, MEDICAID ==
[~2020-10-11] VITALS: Ht 165.1 cm; Wt 59.0 kg
[2020-10-11 11:59] VITALS: BP_SYST 111
[2020-10-11] MEDS ORDERED: LORazepam 2 MG/ML VIAL IVP ONE (12:45)
[2020-10-11] MEDS ORDERED: DIPHENHYDRAMINE INJ 50 MG/ML VIAL IVP ONE (12:45)
[2020-10-11] MEDS ORDERED: NACL 0.9% 1,000 ML IV ONE (12:45)
[2020-10-11] MEDS ORDERED: MAGNESIUM SULFATE/D5W 100 ML IV ONE (12:45)
[2020-10-11] MEDS ORDERED: LORazepam 2 MG/ML VIAL ONE (12:47)
[2020-10-11] MEDS ORDERED: MORPHINE 4 MG/ML INJ. SYRINGE IVP ONE (14:00)
[2020-10-11 14:30] VITALS: BP_SYST 114
== END 2020-10-11 14:30 | disposition home or self-care (01) ==
LOC: SED 11:36
DX: R51.9 Headache, unspecified (principal); K21.9 Gastro-esophageal reflux disease without esophagitis; Z88.1 Allergy status to other antibiotic agents; Z88.6 Allergy status to analgesic agent; Z88.2 Allergy status to sulfonamides; Z91.040 Latex allergy status
CPT/HCPCS: 96365; 96375; 99284; J1200; J2060; J2270; J7030

== ENCOUNTER 2020-10-13 11:31 | Emergency (ER) | payer OTHER, MEDICAID ==
[~2020-10-13] VITALS: Ht 165.1 cm; Wt 61.2 kg
[2020-10-13 11:31] VITALS: BP_SYST 119
[2020-10-13] MEDS ORDERED: LORazepam 2 MG/ML VIAL IVP ONE (13:00)
[2020-10-13] MEDS ORDERED: MAGNESIUM SULFATE 1 GM in NS 100 ML IV ONE (13:00)
[2020-10-13] MEDS ORDERED: NACL 0.9% 1,000 ML IV ONE (13:00)
[2020-10-13] MEDS ORDERED: DIPHENHYDRAMINE INJ 50 MG/ML VIAL IVP ONE (13:00)
[2020-10-13] MEDS ORDERED: MAGNESIUM SULFATE 1 GM/2 ML VIAL ONE (13:13)
[2020-10-13] MEDS ORDERED: MORPHINE 4 MG/ML INJ. SYRINGE IVP ONE (14:15)
[2020-10-13 14:43] VITALS: BP_SYST 128
== END 2020-10-13 14:44 | disposition home or self-care (01) ==
LOC: SED 11:31
DX: G43.909 Migraine, unspecified, not intractable, without status migrainosus (principal); K86.1 Other chronic pancreatitis; K21.9 Gastro-esophageal reflux disease without esophagitis; Z86.2 Personal history of diseases of the blood and blood-forming organs and certain disorders involving the immune mechanism; Z88.0 Allergy status to penicillin; Z88.1 Allergy status to other antibiotic agents; Z88.2 Allergy status to sulfonamides; Z88.6 Allergy status to analgesic agent; Z91.040 Latex allergy status; Z88.8 Allergy status to other drugs, medicaments and biological substances
CPT/HCPCS: 96365; 96375; 99284; J1200; J2060; J2270; J3475; J7030

== ENCOUNTER 2022-06-27 12:14 | Emergency (ER) | payer OTHER, MEDICAID ==
[~2022-06-27] VITALS: Ht 165.1 cm; Wt 51.7 kg
[2022-06-27 12:25] VITALS: BP_SYST 101
[2022-06-27 13:23] LABS: BASOPHILS % (AUTO) 0.3 % (0.0-2.0); EOSINOPHILS # (AUTO) 0.1 K/uL (0.0-0.4); EOSINOPHILS % (AUTO) 2.3 % (0.0-4.0); HEMATOCRIT 33.4 % (36-48); HEMOGLOBIN 11.4 g/dL (12.0-16.0); LYMPHOCYTES # (AUTO) 1.6 K/uL (1.0-5.5); LYMPHOCYTES % (AUTO) 39.3 % (20.5-51.5); MEAN CORPUSCULAR HEMOGLOBIN 30 pg (27-31); MEAN CORPUSCULAR HGB CONC 34 % (32-36); MEAN CORPUSCULAR VOLUME 88 fL (79.0-98.0); MONOCYTES # (AUTO) 0.2 K/uL (0.0-1.0); MONOCYTES % (AUTO) 5.6 % (1.7-9.3); NEUTROPHILS # (AUTO) 2.1 K/uL (1.8-7.7); NEUTROPHILS % (AUTO) 52.5 % (40.0-70.0); PLATELET COUNT (AUTO) 226 K/uL (130-430); RED CELL DISTRIBUTION WIDTH 15.6 % (9.0-15.0)
[2022-06-27 13:45] LABS: CALCIUM 8.7 mg/dL (8.4-11.0); CREATININE 0.71 mg/dL (0.55-1.30)
[2022-06-27 13:50] LABS: ALBUMIN 4.1 g/dL (3.4-4.8); TOTAL BILIRUBIN 0.2 mg/dL (0.0-1.0)
--- NOTE | 2022-06-27 15:00 | NUR ---
Patient to ER bed H1 to gown for evaluation. Side rails up. Report given to LEONCIO RUDD.
[2022-06-27] MEDS ORDERED: DIPHENHYDRAMINE INJ 50 MG/ML VIAL IVP ONE (15:15)
--- NOTE | 2022-06-27 15:15 | NUR ---
Pt bib self from home CC bone pain right femur, right kidney, nausea and vomiting. states dizzy since last night. Pt has extensive medical history including breast cancer, hip and femur injury. Pt is aaox3, denies sob, speaking full sentences. skin intact. Pt has a port a cath to right clavicle.
--- NOTE | 2022-06-27 15:30 | NUR ---
Pt taken to radiology for CT with contrast. Medicated with Benadryl per MD order. Pt states mild reaction to iodine.
[2022-06-27] MEDS ORDERED: NACL 0.9% 1,000 ML IV ONE (16:45)
[2022-06-27] MEDS ORDERED: PROMETHAZINE INJ.Non-Formulary 25 MG/ML AMP IM ONE (16:45)
[2022-06-27] MEDS ORDERED: MORPHINE 4 MG INJ. 4 MG/ML VIAL IVP ONE ×2 (16:45→20:30)
[2022-06-27] MEDS ORDERED: LORazepam 2 MG/ML VIAL IVP ONE (19:00)
--- NOTE | 2022-06-27 19:04 | NUR ---
PT COMPLAINS OF BONE PAIN AND REQUESTING ANXIETY MEDICATION FOR RELIEF. NOTIFIED .
--- NOTE | 2022-06-27 19:20 | NUR ---
Received report from LEONCIO Vasquez; assuming care of patient at this time.
--- NOTE | 2022-06-27 19:25 | NUR ---
Patient A/Ox3, GCS 15, VSS, resp even and unlabored. Patient is lying in bed with safety precautions in place. Patient states "I'm okay right now, I feel better than when I came in earlier." Nad noted at this time.
[2022-06-27 20:38] LABS: BILIRUBIN,URINE NEGATIVE (NEGATIVE); BLOOD, URINE NEGATIVE (NEGATIVE); CLARITY/URINE CLEAR (CLEAR); COLOR,URINE YELLOW (YELLOW); GLUCOSE,URINE NEGATIVE (NEGATIVE); KETONES,URINE NEGATIVE (NEGATIVE); LEUKOCYTE ESTERASE ,URINE NEGATIVE (NEGATIVE); NITRITE, URINE NEGATIVE (NEGATIVE); PH,URINE 7.5 (5.0-8.0); PROTEIN URINE NEGATIVE (NEGATIVE); UROBILINOGEN,URINE 0.2 (0.2-1.0)
[2022-06-27 20:55] VITALS: BP_SYST 118
--- NOTE | 2022-06-27 20:55 | NUR ---
Patient given written and verbal discharge instructions and verbalizes understanding. ER MD discussed with patient the results and treatment provided. Patient in stable condition. ID arm band removed. Patient educated on pain management and to follow up with PMD. Pain Scale 3/10. Opportunity for questions provided and answered. Patient in stable condition upon discharge
== END 2022-06-27 20:55 | disposition home or self-care (01) ==
LOC: SED 12:14
DX: C79.81 Secondary malignant neoplasm of breast (principal); R10.9 Unspecified abdominal pain; R11.10 Vomiting, unspecified; K21.9 Gastro-esophageal reflux disease without esophagitis; Z88.0 Allergy status to penicillin; Z88.1 Allergy status to other antibiotic agents; Z88.2 Allergy status to sulfonamides; Z88.5 Allergy status to narcotic agent; Z88.6 Allergy status to analgesic agent; Z88.8 Allergy status to other drugs, medicaments and biological substances; Z91.041 Radiographic dye allergy status; Z91.040 Latex allergy status; Z79.899 Other long term (current) drug therapy
CPT/HCPCS: 99285; 74177; 96374; 96361; 96375; 80053; 83690; 85025; 36415; 76376; 96376; 81025; 81003; J1200; J2060; J2270; Q9967; J7030; J2550

== ENCOUNTER 2022-09-10 12:03 | Emergency (ER) | payer OTHER, MEDICAID ==
[~2022-09-10] VITALS: Ht 165.1 cm; Wt 49.9 kg
[2022-09-10 12:16] VITALS: BP_SYST 103
[2022-09-10 12:57] LABS: BASOPHILS % (AUTO) 0.3 % (0.0-2.0); EOSINOPHILS % (AUTO) 1.1 % (0.0-4.0); HEMATOCRIT 34.1 % (36-48); HEMOGLOBIN 11.5 g/dL (12.0-16.0); LYMPHOCYTES # (AUTO) 1.6 K/uL (1.0-5.5); LYMPHOCYTES % (AUTO) 39.8 % (20.5-51.5); MEAN CORPUSCULAR HEMOGLOBIN 29 pg (27-31); MEAN CORPUSCULAR HGB CONC 34 % (32-36); MEAN CORPUSCULAR VOLUME 86 fL (79.0-98.0); MONOCYTES # (AUTO) 0.3 K/uL (0.0-1.0); MONOCYTES % (AUTO) 6.7 % (1.7-9.3); NEUTROPHILS # (AUTO) 2.1 K/uL (1.8-7.7); NEUTROPHILS % (AUTO) 52.1 % (40.0-70.0); PLATELET COUNT (AUTO) 246 K/uL (130-430); RED BLOOD CELL COUNT(AUTO) 3.97 MIL/uL (4.2-6.2); RED CELL DISTRIBUTION WIDTH 15.3 % (9.0-15.0); WHITE BLOOD COUNT (AUTO) 3.9 K/uL (4.8-10.8)
[2022-09-10 13:24] LABS: ANION GAP 9 (5-15); CALCIUM 9.3 mg/dL (8.4-11.0); CHLORIDE 106 mmol/L (98-107); CREATININE 0.63 mg/dL (0.55-1.30); GFR AFRICAN AMERICAN 136 mL/min (>90); GLUCOSE 95 mg/dL (70-99); UREA NITROGEN, BLOOD 18 mg/dL (8-21)
[2022-09-10 13:26] LABS: INR 1.1 (0.8-1.2); PROTHROMBIN TIME 11.5 SECS (9.5-12.5)
[2022-09-10 13:40] LABS: ALANINE AMINOTRANSFERASE 20 U/L (12-78); ALBUMIN 4.1 g/dL (3.4-4.8); ASPARTATE AMINOTRANSFERASE 20 U/L (10-37); TOTAL BILIRUBIN 0.3 mg/dL (0.0-1.0)
[2022-09-10 13:53] LABS: ACETONE, SERUM NEGATIVE (NEGATIVE)
[2022-09-10 14:00] LABS: AMYLASE 77 U/L (0-100); LIPASE 235 U/L (73-393)
[2022-09-10] MEDS: NACL 0.9% 2,000 ML IV ONE (15:43)
[2022-09-10] MEDS: ONDANSETRON HCL 4 MG/2 ML VIAL IVP ONE (15:44)
[2022-09-10] MEDS: MORPHINE 4 MG INJ. 4 MG/ML VIAL IVP ONE (15:44)
[2022-09-10 15:51] LABS: BILIRUBIN,URINE NEGATIVE (NEGATIVE); BLOOD, URINE NEGATIVE (NEGATIVE); COLOR,URINE YELLOW (YELLOW); GLUCOSE,URINE NEGATIVE (NEGATIVE); KETONES,URINE TRACE (NEGATIVE); LEUKOCYTE ESTERASE ,URINE 2+ (NEGATIVE); NITRITE, URINE NEGATIVE (NEGATIVE); PROTEIN URINE TRACE (NEGATIVE); UROBILINOGEN,URINE 0.2 (0.2-1.0)
[2022-09-10 15:58] LABS: CLARITY/URINE HAZY (CLEAR)
[2022-09-10 16:42] LABS: BACTERIA,URINE FEW /HPF (None Seen); WBC,URINE 20-50 /HPF (0-3)
[2022-09-10 16:43] LABS: MUCUS,URINE 4+ /LPF (None Seen)
[2022-09-10] MEDS: HYDROmorphone 1 MG/ML INJ. CARTRIDGE IVP ONE (17:52)
[2022-09-10 18:21] VITALS: BP_SYST 103
== END 2022-09-10 18:21 | disposition home or self-care (01) ==
LOC: SED 12:03
DX: M25.551 Pain in right hip (principal); N64.4 Mastodynia; R53.1 Weakness; K21.9 Gastro-esophageal reflux disease without esophagitis; Z88.0 Allergy status to penicillin; Z88.1 Allergy status to other antibiotic agents; Z88.5 Allergy status to narcotic agent; Z88.6 Allergy status to analgesic agent; Z88.8 Allergy status to other drugs, medicaments and biological substances; Z91.041 Radiographic dye allergy status; Z79.899 Other long term (current) drug therapy
CPT/HCPCS: 99284; 96374; 96375; 96361; 80053; 81000; 82009; 82150; 82550; 83690; 85025; 85610; 85730; 87086; 84484; 36415; 93005; 81025; 83605; J2405; J1170; J2270; J7030

== ENCOUNTER 2022-11-14 12:18 | Emergency (ER) | payer OTHER, MEDICAID ==
[~2022-11-14] VITALS: Ht 165.1 cm; Wt 47.6 kg
[2022-11-14 12:18] VITALS: BP_SYST 115
[2022-11-14] MEDS ORDERED: ONDANSETRON HCL 4 MG/2 ML VIAL IVP ONE ×2 (13:15→15:00)
[2022-11-14] MEDS ORDERED: MORPHINE 4 MG INJ. 4 MG/ML VIAL IVP ONE ×2 (13:15→15:00)
[2022-11-14 14:04] LABS: CALCIUM 9.4 mg/dL (8.4-11.0); CREATININE 0.75 mg/dL (0.55-1.30)
[2022-11-14 14:09] LABS: TOTAL BILIRUBIN 0.3 mg/dL (0.0-1.0)
[2022-11-14] MEDS ORDERED: NACL 0.9% 1,000 ML IV ONE (14:15)
[2022-11-14 14:28] LABS: BILIRUBIN,URINE NEGATIVE (NEGATIVE); BLOOD, URINE NEGATIVE (NEGATIVE); CLARITY/URINE CLEAR (CLEAR); COLOR,URINE YELLOW (YELLOW); GLUCOSE,URINE NEGATIVE (NEGATIVE); KETONES,URINE NEGATIVE (NEGATIVE); LEUKOCYTE ESTERASE ,URINE 1+ (NEGATIVE); NITRITE, URINE NEGATIVE (NEGATIVE); PROTEIN URINE NEGATIVE (NEGATIVE)
[2022-11-14 14:38] LABS: BACTERIA,URINE FEW /HPF (None Seen)
[2022-11-14 14:39] LABS: MUCUS,URINE 2+ /LPF (None Seen)
[2022-11-14] MEDS ORDERED: FAMOTIDINE PF 20 MG/2 ML VIAL IVP ONE (15:00)
[2022-11-14 16:01] LABS: BASOPHILS % (AUTO) 0.5 % (0.0-2.0); EOSINOPHILS # (AUTO) 0.2 K/uL (0.0-0.4); EOSINOPHILS % (AUTO) 2.9 % (0.0-4.0); HEMATOCRIT 38.5 % (36-48); HEMOGLOBIN 12.7 g/dL (12.0-16.0); LYMPHOCYTES # (AUTO) 2.4 K/uL (1.0-5.5); LYMPHOCYTES % (AUTO) 34.2 % (20.5-51.5); MEAN CORPUSCULAR HEMOGLOBIN 28 pg (27-31); MEAN CORPUSCULAR HGB CONC 33 % (32-36); MEAN CORPUSCULAR VOLUME 85 fL (79.0-98.0); MONOCYTES # (AUTO) 0.3 K/uL (0.0-1.0); MONOCYTES % (AUTO) 4.7 % (1.7-9.3); NEUTROPHILS # (AUTO) 4.1 K/uL (1.8-7.7); NEUTROPHILS % (AUTO) 57.7 % (40.0-70.0); PLATELET COUNT (AUTO) 279 K/uL (130-430); RED BLOOD CELL COUNT(AUTO) 4.52 MIL/uL (4.2-6.2); RED CELL DISTRIBUTION WIDTH 17.6 % (9.0-15.0); WHITE BLOOD COUNT (AUTO) 7.1 K/uL (4.8-10.8)
[2022-11-14] MEDS ORDERED: NITR-85 PO (17:10)
[2022-11-14] MEDS ORDERED: DIAZEPAM 10 MG/2 ML DISP.SYRIN IVP ONE (17:15)
[2022-11-14] MEDS ORDERED: LORazepam 2 MG/ML VIAL IVP ONE (17:45)
[2022-11-14 18:16] VITALS: BP_SYST 118
== END 2022-11-14 18:16 | disposition home or self-care (01) ==
LOC: SED 12:18
DX: R19.7 Diarrhea, unspecified (principal); E86.0 Dehydration; C44.702 Unspecified malignant neoplasm of skin of right lower limb, including hip; R78.81 Bacteremia; K21.9 Gastro-esophageal reflux disease without esophagitis; Z88.0 Allergy status to penicillin; Z88.1 Allergy status to other antibiotic agents; Z88.2 Allergy status to sulfonamides; Z88.8 Allergy status to other drugs, medicaments and biological substances; Z85.3 Personal history of malignant neoplasm of breast; Z96.649 Presence of unspecified artificial hip joint; Z79.899 Other long term (current) drug therapy
CPT/HCPCS: 99284; 96374; 96375; 71045; 96361; 80053; 81000; 85025; 87040; 87046 ×2; 87045; 87230; 87086; 89055; 36415; 96376; 81025; 82272; 87177; 83605; J3490; J2060; J2405; J2270; J7030

== ENCOUNTER 2022-11-21 09:59 | Emergency (ER) | payer OTHER, MEDICAID ==
[~2022-11-21] VITALS: Ht 165.1 cm; Wt 47.6 kg
[~2022-11-21 09:59] MED LIST: NITR-85 PO
[2022-11-21 10:20] VITALS: BP_SYST 103
[2022-11-21] MEDS ORDERED: MORPHINE 4 MG INJ. 4 MG/ML VIAL IVP ONE (10:45)
[2022-11-21] MEDS ORDERED: ONDANSETRON HCL 4 MG/2 ML VIAL IVP ONE (10:45)
[2022-11-21] MEDS ORDERED: NACL 0.9% 1,000 ML IV ONE (10:45)
[2022-11-21 11:16] LABS: BASOPHILS % (AUTO) 0.6 % (0.0-2.0); EOSINOPHILS % (AUTO) 0.6 % (0.0-4.0); HEMATOCRIT 37.4 % (36-48); HEMOGLOBIN 12.3 g/dL (12.0-16.0); LYMPHOCYTES # (AUTO) 1.6 K/uL (1.0-5.5); LYMPHOCYTES % (AUTO) 29.9 % (20.5-51.5); MEAN CORPUSCULAR HEMOGLOBIN 28 pg (27-31); MEAN CORPUSCULAR HGB CONC 33 % (32-36); MEAN CORPUSCULAR VOLUME 85 fL (79.0-98.0); MONOCYTES # (AUTO) 0.4 K/uL (0.0-1.0); NEUTROPHILS # (AUTO) 3.2 K/uL (1.8-7.7); NEUTROPHILS % (AUTO) 60.9 % (40.0-70.0); PLATELET COUNT (AUTO) 164 K/uL (130-430); RED BLOOD CELL COUNT(AUTO) 4.38 MIL/uL (4.2-6.2); RED CELL DISTRIBUTION WIDTH 17.1 % (9.0-15.0); WHITE BLOOD COUNT (AUTO) 5.2 K/uL (4.8-10.8)
[2022-11-21 11:29] LABS: CREATININE 0.83 mg/dL (0.55-1.30)
[2022-11-21 11:33] LABS: TOTAL BILIRUBIN 0.7 mg/dL (0.0-1.0)
[2022-11-21 12:15] LABS: BILIRUBIN,URINE NEGATIVE (NEGATIVE); BLOOD, URINE 1+ (NEGATIVE); CLARITY/URINE CLEAR (CLEAR); COLOR,URINE YELLOW (YELLOW); GLUCOSE,URINE NEGATIVE (NEGATIVE); KETONES,URINE TRACE (NEGATIVE); LEUKOCYTE ESTERASE ,URINE TRACE (NEGATIVE); NITRITE, URINE NEGATIVE (NEGATIVE); PROTEIN URINE NEGATIVE (NEGATIVE); UROBILINOGEN,URINE 0.2 (0.2-1.0)
[2022-11-21 12:25] LABS: BACTERIA,URINE FEW /HPF (None Seen); MUCUS,URINE 2+ /LPF (None Seen)
[2022-11-21] MEDS ORDERED: DIPHENHYDRAMINE INJ 50 MG/ML VIAL IVP ONE (12:30)
[2022-11-21] MEDS ORDERED: LORazepam 2 MG/ML VIAL IVP ONE (12:30)
[2022-11-21] MEDS ORDERED: cefTRIAXone 1 GM VIAL IM ONE (12:30)
[2022-11-21 14:37] VITALS: BP_SYST 103
== END 2022-11-21 14:37 | disposition home or self-care (01) ==
LOC: SED 09:59
DX: N39.0 Urinary tract infection, site not specified (principal); R30.0 Dysuria; R35.0 Frequency of micturition; R50.9 Fever, unspecified; K21.9 Gastro-esophageal reflux disease without esophagitis; Z88.0 Allergy status to penicillin; Z88.1 Allergy status to other antibiotic agents; Z88.2 Allergy status to sulfonamides; Z88.6 Allergy status to analgesic agent; Z91.040 Latex allergy status; Z88.8 Allergy status to other drugs, medicaments and biological substances; Z79.899 Other long term (current) drug therapy
CPT/HCPCS: 99285; 74176; 96365; 96375; 71045; 96361; 80053; 81000; 85025; 87040; 87086; 36415; 76376; 83605; J0696; J1200; J2060; J2405; J2270; J7030

== ENCOUNTER 2022-12-20 12:50 | Emergency (ER) | payer OTHER, MEDICAID ==
[~2022-12-20] VITALS: Ht 165.1 cm; Wt 45.4 kg
[2022-12-20 12:53] VITALS: BP_SYST 115
--- NOTE | 2022-12-20 12:55 | NUR ---
Pt brought by self, A&Ox4, pt presents to ER with chest wall pain/epigastric pain since this am, respirations even and unlabored, cap refill <3, no N/V noted, will cont to monitor.
--- NOTE | 2022-12-20 14:01 | NUR ---
Dr Alvarez evaluating patient at bedside
[2022-12-20 14:03] LABS: BASOPHILS % (AUTO) 0.3 % (0.0-2.0); EOSINOPHILS # (AUTO) 0.2 K/uL (0.0-0.4); HEMATOCRIT 33.3 % (36-48); LYMPHOCYTES # (AUTO) 1.5 K/uL (1.0-5.5); LYMPHOCYTES % (AUTO) 36.8 % (20.5-51.5); MEAN CORPUSCULAR HEMOGLOBIN 29 pg (27-31); MEAN CORPUSCULAR HGB CONC 33 % (32-36); MEAN CORPUSCULAR VOLUME 89 fL (79.0-98.0); MONOCYTES # (AUTO) 0.3 K/uL (0.0-1.0); MONOCYTES % (AUTO) 6.4 % (1.7-9.3); NEUTROPHILS # (AUTO) 2.2 K/uL (1.8-7.7); NEUTROPHILS % (AUTO) 52.5 % (40.0-70.0); PLATELET COUNT (AUTO) 180 K/uL (130-430); RED BLOOD CELL COUNT(AUTO) 3.76 MIL/uL (4.2-6.2); RED CELL DISTRIBUTION WIDTH 16.7 % (9.0-15.0); WHITE BLOOD COUNT (AUTO) 4.2 K/uL (4.8-10.8)
[2022-12-20 14:06] LABS: ANION GAP 8 (5-15); CALCIUM 8.9 mg/dL (8.4-11.0); CHLORIDE 105 mmol/L (98-107); CREATININE 0.75 mg/dL (0.55-1.30); GFR AFRICAN AMERICAN 111 mL/min (>90); GLUCOSE 112 mg/dL (70-99); UREA NITROGEN, BLOOD 11 mg/dL (8-21)
[2022-12-20 14:13] LABS: ALANINE AMINOTRANSFERASE 21 U/L (12-78); ALBUMIN 3.7 g/dL (3.4-4.8); ASPARTATE AMINOTRANSFERASE 16 U/L (10-37); TOTAL BILIRUBIN 0.2 mg/dL (0.0-1.0)
[2022-12-20] MEDS ORDERED: MORPHINE 4 MG INJ. 4 MG/ML VIAL IM ONE (14:15)
--- NOTE | 2022-12-20 14:54 | NUR ---
PT RESTING IN BED 3 WITH RAILS UP VSS. PT RECIEVED 4MG MORPHIN.
[2022-12-20] MEDS ORDERED: LORA-259 PO (15:11)
[2022-12-20] MEDS ORDERED: NS 500 ML IV ONE (15:15)
--- NOTE | 2022-12-20 15:15 | NUR ---
ER at bedside examining patient.
[2022-12-20 15:50] VITALS: BP_SYST 137
--- NOTE | 2022-12-20 16:22 | NUR ---
Patient given written and verbal discharge instructions and verbalizes understanding. ER MD discussed with patient the results and treatment provided. Patient in stable condition. ID arm band removed. Rx of ATIVAN given. Patient educated on PALPITATIONS and to follow up with PMD. Pain Scale 4. Opportunity for questions provided and answered. Medication side effect fact sheet provided.
== END 2022-12-20 16:22 | disposition home or self-care (01) ==
LOC: SED 12:50
DX: R00.2 Palpitations (principal); F41.9 Anxiety disorder, unspecified; R10.13 Epigastric pain; R06.02 Shortness of breath; K21.9 Gastro-esophageal reflux disease without esophagitis; Z88.0 Allergy status to penicillin; Z88.1 Allergy status to other antibiotic agents; Z88.2 Allergy status to sulfonamides; Z88.5 Allergy status to narcotic agent; Z88.8 Allergy status to other drugs, medicaments and biological substances; Z91.041 Radiographic dye allergy status; Z79.899 Other long term (current) drug therapy
CPT/HCPCS: 99285; 71045; 80053; 84703; 83880; 84443; 85025; 84484; 36415; 93005; 96372; J2270

== ENCOUNTER 2023-01-05 11:28 | Emergency (ER) | payer OTHER, MEDICAID ==
[~2023-01-05] VITALS: Ht 165.1 cm; Wt 49.9 kg
[~2023-01-05 11:28] MED LIST changes: +LORA-259 PO
--- NOTE | 2023-01-05 11:30 | NUR ---
Placed in room 03 . Placed on ekg monitor tech, blood pressure machine and pulse oximeter. To gown for exam. Side rails up.
--- NOTE | 2023-01-05 11:33 | NUR ---
PT REFUSES GOWN.
[2023-01-05 11:40] VITALS: BP_SYST 113
[2023-01-05] MEDS ORDERED: NACL 0.9% 1,000 ML IV ONE (11:45)
[2023-01-05] MEDS ORDERED: MORPHINE 4 MG INJ. 4 MG/ML VIAL IVP ONE ×2 (11:45→13:45)
--- NOTE | 2023-01-05 11:51 | NUR ---
HCG-. Urine: Dark orange, clear, with faul odor. sent to lab.
[2023-01-05] MEDS ORDERED: cefTRIAXone 1 GM IVPB PREMIX 50 ML IV ONE (12:00)
[2023-01-05 12:26] LABS: BILIRUBIN,URINE NEGATIVE (NEGATIVE); CLARITY/URINE CLEAR (CLEAR); COLOR,URINE YELLOW (YELLOW); GLUCOSE,URINE NEGATIVE (NEGATIVE); KETONES,URINE NEGATIVE (NEGATIVE); LEUKOCYTE ESTERASE ,URINE NEGATIVE (NEGATIVE); NITRITE, URINE NEGATIVE (NEGATIVE); PROTEIN URINE NEGATIVE (NEGATIVE); UROBILINOGEN,URINE 0.2 (0.2-1.0)
[2023-01-05 12:28] LABS: BLOOD, URINE TRACE (NEGATIVE)
[2023-01-05 12:34] LABS: BACTERIA,URINE RARE /HPF (None Seen); MUCUS,URINE 1+ /LPF (None Seen); WBC,URINE 0-3 /HPF (0-3)
[2023-01-05 12:37] LABS: BASOPHILS % (AUTO) 0.2 % (0.0-2.0); EOSINOPHILS % (AUTO) 0.6 % (0.0-4.0); HEMATOCRIT 33.7 % (36-48); HEMOGLOBIN 11.1 g/dL (12.0-16.0); LYMPHOCYTES # (AUTO) 1.4 K/uL (1.0-5.5); LYMPHOCYTES % (AUTO) 28.9 % (20.5-51.5); MEAN CORPUSCULAR HEMOGLOBIN 29 pg (27-31); MEAN CORPUSCULAR HGB CONC 33 % (32-36); MEAN CORPUSCULAR VOLUME 89 fL (79.0-98.0); MONOCYTES # (AUTO) 0.3 K/uL (0.0-1.0); MONOCYTES % (AUTO) 5.6 % (1.7-9.3); NEUTROPHILS # (AUTO) 3.2 K/uL (1.8-7.7); NEUTROPHILS % (AUTO) 64.7 % (40.0-70.0); PLATELET COUNT (AUTO) 228 K/uL (130-430); RED BLOOD CELL COUNT(AUTO) 3.78 MIL/uL (4.2-6.2); RED CELL DISTRIBUTION WIDTH 15.6 % (9.0-15.0); WHITE BLOOD COUNT (AUTO) 4.9 K/uL (4.8-10.8)
--- NOTE | 2023-01-05 12:45 | NUR ---
PT W/ MULTIPLE REQUESTS FOR ADDITIONAL ANALGESIA. DR BEAN AT FOR DISCUSSION W/ PT. COMFORT MEASURES AND SUPPORTIVE CARE CONTINUEDD. PT OBSERVED REMOVING MONITORING EQUIPMENT AND SELF REMOVING IVF FROM IV BEST NEEDLE EXTENSION TUBING PT PRESENTED W/. PT STATES SHE HOME MAINTAINS RAUL-CATH AND IT IS PATENT. DRSG IS CLEAN AND DRY AT PRESENT. NO DISCOLORATION, CLOTS, OR AREA CONCERN NOTED AT SITE OR WITH TUBING. COMFORT MEASURES AND SUPPORTIVE CARE CONTINUED.
[2023-01-05 12:52] LABS: CALCIUM 9.1 mg/dL (8.4-11.0); CREATININE 0.75 mg/dL (0.55-1.30)
[2023-01-05 12:56] LABS: ALBUMIN 3.8 g/dL (3.4-4.8); TOTAL BILIRUBIN 0.5 mg/dL (0.0-1.0)
--- NOTE | 2023-01-05 13:42 | NUR ---
PT REFUSED ROCEPHIN W/O BENADRYL DUE TO ITCHING. ORDER RECIEVED ALONG W/ ADDITIONAL ANALGESIA.
[2023-01-05] MEDS ORDERED: DIPHENHYDRAMINE INJ 50 MG/ML VIAL IVP ONE (13:45)
--- NOTE | 2023-01-05 14:30 | NUR ---
PT PENDING D/C. COLLEAGUES TO D/C HOME
[2023-01-05] MEDS ORDERED: LORazepam 2 MG/ML VIAL IVP ONE (15:00)
--- NOTE | 2023-01-05 15:15 | NUR ---
PER LINA SILVA. PT REFUSED TO D/C HOME UNTIL ATIVAN GIVEN DUE TO ANXIETY. ATIVAN 2 MG GIVEN BY LINA SILVA. PT HAD NO CHANGE MENTATION, AWAKENFULLNESS OR SLEEPINESS.
[2023-01-05 16:00] VITALS: BP_SYST 110
--- NOTE | 2023-01-05 16:00 | NUR ---
PT INITIALLY REQUESTED PEPCID IV. DR. BEAN REFUSES TO ORDER. PT INFORMED. D/C INSTRUCTIONS GIVEN W/ COPIES OF LAB PER REQUESTED. W/C TO [facility] WITHOUT INCIDENT, WHERE MOTHER WAS WAITING IN VEHICLE.
== END 2023-01-05 16:00 | disposition home or self-care (01) ==
LOC: SED 11:28
DX: R10.30 Lower abdominal pain, unspecified (principal); R30.0 Dysuria; M79.10 Myalgia, unspecified site; Z88.0 Allergy status to penicillin; Z88.2 Allergy status to sulfonamides; Z88.5 Allergy status to narcotic agent; Z91.041 Radiographic dye allergy status; Z88.6 Allergy status to analgesic agent; Z79.899 Other long term (current) drug therapy
CPT/HCPCS: 99284; 96365; 96375; 96361; 80053; 81000; 85025; 87040; 36415; 96376; 83605; J0696; J1200; J2060; J2270; J7030

== ENCOUNTER 2023-01-24 11:32 | Emergency (ER) | payer OTHER, MEDICAID ==
[~2023-01-24] VITALS: Ht 165.1 cm; Wt 49.9 kg
[2023-01-24 11:44] VITALS: BP_SYST 109
[2023-01-24] MEDS ORDERED: LORazepam 2 MG/ML VIAL IVP ONE (12:15)
[2023-01-24] MEDS ORDERED: DIPHENHYDRAMINE INJ 50 MG/ML VIAL IVP ONE (12:15)
[2023-01-24] MEDS ORDERED: NACL 0.9% 1,000 ML IV ONE (12:15)
[2023-01-24] MEDS ORDERED: ACETAMINOPHEN 500 MG TABLET PO ONE (12:15)
[2023-01-24 13:05] LABS: BASOPHILS % (AUTO) 0.4 % (0.0-2.0); EOSINOPHILS # (AUTO) 0.1 K/uL (0.0-0.4); EOSINOPHILS % (AUTO) 1.5 % (0.0-4.0); HEMATOCRIT 35.1 % (36-48); HEMOGLOBIN 11.5 g/dL (12.0-16.0); LYMPHOCYTES # (AUTO) 1.8 K/uL (1.0-5.5); LYMPHOCYTES % (AUTO) 34.3 % (20.5-51.5); MEAN CORPUSCULAR HEMOGLOBIN 29 pg (27-31); MEAN CORPUSCULAR HGB CONC 33 % (32-36); MEAN CORPUSCULAR VOLUME 89 fL (79.0-98.0); MONOCYTES # (AUTO) 0.3 K/uL (0.0-1.0); MONOCYTES % (AUTO) 6.3 % (1.7-9.3); NEUTROPHILS % (AUTO) 57.5 % (40.0-70.0); PLATELET COUNT (AUTO) 225 K/uL (130-430); RED BLOOD CELL COUNT(AUTO) 3.95 MIL/uL (4.2-6.2); WHITE BLOOD COUNT (AUTO) 5.2 K/uL (4.8-10.8)
[2023-01-24 13:10] LABS: CALCIUM 9.3 mg/dL (8.4-11.0); CREATININE 0.72 mg/dL (0.55-1.30)
[2023-01-24 13:14] LABS: ALBUMIN 3.8 g/dL (3.4-4.8); PHOSPHORUS 4.2 mg/dL (2.7-4.5); TOTAL BILIRUBIN 0.3 mg/dL (0.0-1.0)
[2023-01-24] MEDS ORDERED: MORPHINE 4 MG INJ. 4 MG/ML VIAL IVP ONE (14:45)
[2023-01-24 16:24] VITALS: BP_SYST 99
== END 2023-01-24 16:24 | disposition home or self-care (01) ==
LOC: SED 11:32
DX: G43.909 Migraine, unspecified, not intractable, without status migrainosus (principal); E86.0 Dehydration; R11.0 Nausea; H53.149 Visual discomfort, unspecified; K21.9 Gastro-esophageal reflux disease without esophagitis; Z88.0 Allergy status to penicillin; Z88.1 Allergy status to other antibiotic agents; Z88.2 Allergy status to sulfonamides; Z88.5 Allergy status to narcotic agent; Z88.6 Allergy status to analgesic agent; Z91.041 Radiographic dye allergy status; Z88.8 Allergy status to other drugs, medicaments and biological substances; Z79.899 Other long term (current) drug therapy
CPT/HCPCS: 99284; 96374; 96375; 96361; 80053; 83735; 84100; 85025; 36415; J1200; J2060; J2270; J7030

== ENCOUNTER 2023-01-30 14:19 | Inpatient (IN) | payer OTHER, MEDICAID ==
[~2023-01-30] VITALS: Ht 165.1 cm; Wt 47.6 kg
[2023-01-30 14:25] VITALS: BP_SYST 118
--- NOTE | 2023-01-30 14:25 | NUR ---
Patient triaged and placed in waiting room. VSS and patient appears in no acute distress at this time. Accompanied by MOTHER, awaiting available bed, and MD notified of need for MSE.
--- NOTE | 2023-01-30 14:50 | NUR ---
Pt has Portcath on L chest, pt states port was changed recently and the doctor told her port should not be used at this time since it needs to rest.
[2023-01-30] MEDS ORDERED: LORazepam 2 MG/ML VIAL IVP ONE (15:00)
--- NOTE | 2023-01-30 15:12 | NUR ---
Per Dr Alvarez Ativan 2 mg needs to be administered IM, patient refusing IM medication states she needs Benadryl in case she gets a skin rash .
--- NOTE | 2023-01-30 15:31 | NUR ---
Pt states port cath works for IVP but not for fluids, Dr Alvarez notified, Dr Alvarez at bedside assessing the patient, per Dr Alvarez port cath can be used.
[2023-01-30 16:12] LABS: HEMATOCRIT 28.5 % (36-48); HEMOGLOBIN 9.4 g/dL (12.0-16.0); MEAN CORPUSCULAR HEMOGLOBIN 30 pg (27-31); MEAN CORPUSCULAR HGB CONC 33 % (32-36); MEAN CORPUSCULAR VOLUME 89 fL (79.0-98.0); PLATELET COUNT (AUTO) 148 K/uL (130-430); RED BLOOD CELL COUNT(AUTO) 3.19 MIL/uL (4.2-6.2); RED CELL DISTRIBUTION WIDTH 14.7 % (9.0-15.0)
[2023-01-30 16:19] LABS: ANION GAP 13 (5-15); CALCIUM 8.2 mg/dL (8.4-11.0); CHLORIDE 104 mmol/L (98-107); CREATININE 1.02 mg/dL (0.55-1.30); GFR AFRICAN AMERICAN 78 mL/min (>90); GLUCOSE 138 mg/dL (74-106); UREA NITROGEN, BLOOD 14 mg/dL (8-21)
[2023-01-30 16:32] LABS: ALANINE AMINOTRANSFERASE 7 U/L (12-78); ASPARTATE AMINOTRANSFERASE 17 U/L (10-37); FREE T4 (FREE THYROXINE) 1.1 ng/dL (0.6-1.6); THYROID STIMULATING HORMONE 2.77 uIu/mL (0.34-4.82); TOTAL BILIRUBIN 0.2 mg/dL (0.0-1.0)
[2023-01-30 16:38] LABS: WHITE BLOOD COUNT (AUTO) 1.8 K/uL (4.8-10.8)
--- NOTE | 2023-01-30 16:44 | NUR ---
ORAL TEMP WAS OBTAINED AND READ 101.0F RN AND MD BLANK NOTIFIED
[2023-01-30 17:01] LABS: ACETONE, SERUM NEGATIVE (NEGATIVE)
--- NOTE | 2023-01-30 17:05 | NUR ---
Right EJ placed by Dr Alvarez, procedure well tolerated.
[2023-01-30] MEDS ORDERED: CEFEPIME 2 GM in D5W 100 ML IV ONE (17:15)
[2023-01-30] MEDS ORDERED: NS 500 ML IV ONE (17:15)
[2023-01-30] MEDS ORDERED: MORPHINE 2 MG/ML INJ. SYRINGE IVP ONE (17:15)
[2023-01-30] MEDS ORDERED: NACL 0.9% 1,000 ML IV ONE (17:15)
--- NOTE | 2023-01-30 17:26 | NUR ---
Admit bed requested Patient will be admitted to care of [[facility]]. Admitted to [Tele] unit. Diagnosis [Neutropenic Sepsis ] Inpatient (Yes or No) [Yes] Observation (Yes or No) [No] Orientation concerns or request close to nursing station (Yes or No) [No] Covid Status [n/a] On vent or bipap [n/a] Isolation requirements [n/a] Needs a sitter [n/a] From Home (Yes or if No enter name of facility) [n/a] Requires Dialysis (Yes or No) [No] Med Rec Completed (Yes of No) [yes]
[2023-01-30 17:29] LABS: BAND % (MANUAL) 11 % (0-6); BASOPHILS % (MANUAL) 0 % (0-2); EOSINOPHILS % (MANUAL) 1 % (0-7); LYMPHOCYTES % (MANUAL) 19 % (20-46); MONOCYTES % (MANUAL) 1 % (0-11)
--- NOTE | 2023-01-30 17:57 | NUR ---
Pt requesting Benadryl prior Cefepime antibiotic, Dr Alvarez notified
[2023-01-30] MEDS ORDERED: DIPHENHYDRAMINE INJ 50 MG/ML VIAL ONE (18:07)
[2023-01-30] MEDS ORDERED: DIPHENHYDRAMINE INJ 50 MG/ML VIAL IVP ONE (18:15)
--- NOTE | 2023-01-30 18:28 | NUR ---
Pt A&Ox4, pt states she wishes to be DNR status , Dr Alvarez notified, form filled by Janet SILVA
--- NOTE | 2023-01-30 19:13 | NUR ---
Repot given to Rip FANG
--- NOTE | 2023-01-30 19:15 | NUR ---
Received verbal report from outgoing nurse RICARDO Delgado. Received pt resting awake and alert with mother at bedside, no s/s of distress noted. Safety precautions in place.
--- NOTE | 2023-01-30 21:19 | NUR ---
Patient will be admitted to care of Dr Rubin. Admitted to Tele unit. Will go to room 100A. Belongings list completed. Complete and up to date summary report printed. SBAR report to be given at bedside with opportunity for questions.
[2023-01-30] MEDS ORDERED: TEMAZEPAM 15 MG CAPSULE PO PRN (21:30)
[2023-01-30] MEDS ORDERED: ACETAMINOPHEN 325 MG TABLET PO PRN (21:30)
[2023-01-30] MEDS: LORazepam 1 MG TABLET PO SCH (21:30)
--- NOTE | 2023-01-30 21:30 | NUR ---
Patient arrived to room 100A from ED for c/o generalized weakness. 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 She is not on Chemo and was recently off Palliative care Hospice due to "Medicare running out." Patient has left chest portacath that is not accessible at this time because "she gets chills whenever it is being flushed" and will have it replaced in the next couple days. Dr. Rubin came to bedside to see patient. She told him she has "7 mm lesion right lung, 5 mm lesion left lung." OPAL Sommers at bedside as well. Will continue to monitor. Call light within reach.
[2023-01-30 21:58] VITALS: BP_SYST 121
[2023-01-30] MEDS ORDERED: NACL 0.9% 1,000 ML IV SCH (22:30)
[2023-01-30] MEDS: ONDANSETRON HCL 4 MG/2 ML VIAL IVP PRN (22:45)
[2023-01-30] MEDS: DIPHENHYDRAMINE INJ 50 MG/ML VIAL IVP PRN (22:46)
[2023-01-30] MEDS: HYDROmorphone 2 MG/ML VIAL IVP PRN (22:47)
[2023-01-30] MEDS: NACL 0.9% 1,000 ML IV SCH (22:53)
[2023-01-30 23:03] LABS: AMYLASE 64 U/L (0-100); LIPASE 155 U/L (73-393)
--- NOTE | 2023-01-30 23:36 | NUR ---
Right IJ IV came out. Dr. Rubin made aware. Patient kept asking to use portacath for meds. Dr. Rubin made aware and explained to staff and patient not to use the port. New orders noted and carried out. ER notified for assistance.
[2023-01-31] VITALS: BP_SYST 114
--- NOTE | 2023-01-31 00:07 | NUR ---
pATIENT SIGNED CONSENT FOR CENTRAL LINE.
--- NOTE | 2023-01-31 00:07 | NUR ---
CENTRAL LINE IN PROGRESS WITH ER
--- NOTE | 2023-01-31 00:08 | NUR ---
CXR AT BEDSIDE FOR CENTRAL LINE PLACEMENT.
[2023-01-31] MEDS ORDERED: HYDROmorphone 2 MG/ML VIAL IVP ONE (00:45)
[2023-01-31] MEDS: HYDROmorphone 2 MG/ML VIAL IVP PRN ×5 (00:46→23:13)
--- NOTE | 2023-01-31 01:02 | NUR ---
Patient wanted pain medicine after procedure. Spoke with Dr. Rubin. New orders noted and carried out for one time dose of pain medicine.
--- NOTE | 2023-01-31 01:43 | NUR ---
Consultation Paged Reason for Consult: Sepsis Was consult called: Y Person who was notified: Ida Consulting Physician: Dr. Shannon Ordering Physician: Dr. Rubin
[2023-01-31] MEDS: LINEZOLID 300 ML IV SCH ×2 (01:46→09:26)
[2023-01-31 04:00] VITALS: BP_SYST 120
[2023-01-31] MEDS: LORazepam 2 MG/ML VIAL IVP PRN ×4 (04:08→18:12)
[2023-01-31] MEDS: DIPHENHYDRAMINE INJ 50 MG/ML VIAL IVP PRN ×4 (04:23→23:14)
--- NOTE | 2023-01-31 04:44 | NUR ---
Patient c/o itchiness. Went to assess. New orders noted and carried out.
[2023-01-31] MEDS: ONDANSETRON HCL 4 MG/2 ML VIAL IVP PRN (06:19)
[2023-01-31 06:21] LABS: BASOPHILS % (AUTO) 0.3 % (0.0-2.0); EOSINOPHILS # (AUTO) 0.2 K/uL (0.0-0.4); EOSINOPHILS % (AUTO) 1.9 % (0.0-4.0); HEMATOCRIT 25.2 % (36-48); HEMOGLOBIN 8.4 g/dL (12.0-16.0); LYMPHOCYTES # (AUTO) 2.4 K/uL (1.0-5.5); LYMPHOCYTES % (AUTO) 26.5 % (20.5-51.5); MEAN CORPUSCULAR HEMOGLOBIN 30 pg (27-31); MEAN CORPUSCULAR HGB CONC 33 % (32-36); MEAN CORPUSCULAR VOLUME 90 fL (79.0-98.0); MONOCYTES # (AUTO) 0.4 K/uL (0.0-1.0); NEUTROPHILS # (AUTO) 6.1 K/uL (1.8-7.7); NEUTROPHILS % (AUTO) 67.3 % (40.0-70.0); PLATELET COUNT (AUTO) 171 K/uL (130-430); RED BLOOD CELL COUNT(AUTO) 2.82 MIL/uL (4.2-6.2); RED CELL DISTRIBUTION WIDTH 14.7 % (9.0-15.0); WHITE BLOOD COUNT (AUTO) 9.1 K/uL (4.8-10.8)
--- NOTE | 2023-01-31 06:26 | NUR ---
Patient verbalized she "has labored breathing" and is requesting 2L NC. Communicated with Dr. Rubin. New orders noted and carried out.
[2023-01-31 06:30] LABS: ALBUMIN 2.6 g/dL (3.4-4.8); CALCIUM 7.8 mg/dL (8.4-11.0); CREATININE 0.74 mg/dL (0.55-1.30); TOTAL BILIRUBIN 0.2 mg/dL (0.0-1.0)
--- NOTE | 2023-01-31 06:39 | NUR ---
Patient resting at the moment.
--- NOTE | 2023-01-31 06:43 | NUR ---
Report given to day shift RN for continuity of care. Patient in stable condition.
[2023-01-31 08:00] VITALS: BP_SYST 98
--- NOTE | 2023-01-31 08:00 | NUR ---
OPENING NOTES; PT RESTING IN BED, REVERSE ISOLATION PRECAUTION CONTINUED. RIJ CENTRAL LINE REMAIN INTACT AND CLEAN. NO S/S ACUTE DISTRESS OR SOB NOTED. BED IS LOCKED AND AT LOW POSITION ENCOURAGED PT TO USE CALL LIGHT FOR ASSISTANCE. PROVIDED WARM BLANKETS REQUESTED. WILL CONT TO MONITOR FOR ANY CHANGES
[2023-01-31] MEDS: LORazepam 1 MG TABLET PO SCH ×2 (09:00→21:00)
[2023-01-31] MEDS: FAMOTIDINE PF 20 MG/2 ML VIAL IVP SCH ×2 (09:27→21:41)
[2023-01-31] MEDS: NACL 0.9% 1,000 ML IV SCH (09:31)
--- NOTE | 2023-01-31 10:00 | NUR ---
NOTES; CM AT BEDSIDE, TALKING TO PT.
[2023-01-31] MEDS: LIDOCAINE PATCH 5% 1 EA TP PRN (10:08)
[2023-01-31 12:00] VITALS: BP_SYST 94
[2023-01-31 12:05] LABS: BILIRUBIN,URINE NEGATIVE (NEGATIVE); CLARITY/URINE CLEAR (CLEAR); COLOR,URINE YELLOW (YELLOW); GLUCOSE,URINE NEGATIVE (NEGATIVE); KETONES,URINE NEGATIVE (NEGATIVE); LEUKOCYTE ESTERASE ,URINE NEGATIVE (NEGATIVE); NITRITE, URINE NEGATIVE (NEGATIVE); PH,URINE 5.5 (5.0-8.0); PROTEIN URINE NEGATIVE (NEGATIVE); UROBILINOGEN,URINE 0.2 (0.2-1.0)
[2023-01-31 12:06] LABS: BLOOD, URINE TRACE (NEGATIVE)
[2023-01-31 12:39] LABS: BACTERIA,URINE RARE /HPF (None Seen); WBC,URINE 0-3 /HPF (0-3)
[2023-01-31] MEDS: LR 1,000 ML IV SCH ×2 (13:56→23:00)
--- NOTE | 2023-01-31 14:08 | NUR ---
MD ROUNDS; AT BEDSIDE, ASSESSING PT. RECEIVED NEW ORDER FROM. CARRIED OUT ORDER
[2023-01-31] MEDS ORDERED: DIPHENHYDRAMINE HCL/ZINC ACET 28.3 GM CREAM.GM. TP PRN (15:00)
--- NOTE | 2023-01-31 15:00 | NUR ---
NOTES; PLACE NEW DRESSING TO LEFT CHEST PORT BY USING STERILE TECHNIQUE. COVERED WITH TRANSPARENT DRESSING. PT TOLERATED WELL.
[2023-01-31 15:05] LABS: INR 1.2 (0.8-1.2)
--- NOTE | 2023-01-31 15:45 | NUR ---
PAIN PATIENT COMPLAINING OF PAIN, REPOSITIONED PATIENT.
--- NOTE | 2023-01-31 15:49 | NUR ---
Spoke w/ Lula at Dr Donahue's office in [place], the patient's vascular surgeon, . She informed me the patient is scheduled for lorri cath removal on SaturdayFebruary 04 at 2PM. She needs to be at [facility] in [place] at 11AM on SaturdayFebruary 04. She was sent pre-op labs/CXR/EKG as requested.
--- NOTE | 2023-01-31 15:56 | NUR ---
PT REQUESTS BENADRYL TO BE Q4HR PRN INSTEAD OF Q6HR. SPOKE WITH JIMBO CARRILLO TO BENADRYL Q4HR PRN.
[2023-01-31 16:00] VITALS: BP_SYST 114
--- NOTE | 2023-01-31 17:00 | NUR ---
NOTES; WI REQUESTS INCREASED DOSE OF ATIVAN, DECADRON FOR MUSCLE PAIN/STIFFNESS AND PEPCID FOR [id number]. WILL PAGE DOCTOR REGARDING PT'S REQUEST.
--- NOTE | 2023-01-31 19:00 | NUR ---
CLOSING NOTE; PT RESTING IN BED, DROWSY. IVF RUNNING ORDERED. IV SITE REMAIN INTACT AND PATENT. MADE PT AWARE REGARDING HIS MEDICATION REQUESTS EARLIER. BED IS LOCKED AND AT LOW POSITION. ENCOURAGED PT TO USE CANDLELIGHT ENDORSE CARE TO RADIO MESSAGE ROUTER NURSE.
--- NOTE | 2023-01-31 19:40 | NUR ---
ROUNDS PATIENT ASLEEP AT THIS TIME, FAMILY AT THE BEDSIDE, VITALS STABLE. NO SIGNS OF PAIN AT THIS TIME. ASSESSMENT DONE AND DOCUMENTED. SEE FLOWSHEET. NEEDS ATTENDED TO. CALL LIGHT PLACED WITHIN REACH.
[2023-01-31 20:00] VITALS: BP_SYST 121
[2023-01-31] MEDS: MICAFUNGIN SODIUM 100 MG in NS 100 ML IV SCH (20:11)
[2023-01-31] MEDS: GENTAMICIN SULFATE 350 MG in NS 100 ML IV SCH (21:41)
[2023-02-01 02:02] VITALS: BP_SYST 129
[2023-02-01] MEDS: LORazepam 2 MG/ML VIAL IVP PRN ×3 (02:49→19:08)
[2023-02-01] MEDS: HYDROmorphone 2 MG/ML VIAL IVP PRN ×5 (03:22→20:21)
[2023-02-01] MEDS: DIPHENHYDRAMINE INJ 50 MG/ML VIAL IVP PRN ×5 (03:22→20:21)
--- NOTE | 2023-02-01 03:54 | NUR ---
NOTES PATIENT AWAKE, VITALS STABLE, CENTRAL LINE DRESSING CHANGE DONE ASKED BY PATIENT PER STERILE PROCEDURE. NEEDS ATTENDED TO. CALL LIGHT WITHIN REACH.
--- NOTE | 2023-02-01 05:30 | NUR ---
NOTES PATIENT AWAKE,WANTS STEROID SAYING BENADRYL IS NOT WORKING ON HER ITCHINESS AND SHE ALSO CLAIMED THAT SHE HIT HER LEFT SIDE OF HER FACE IN THE BATHROOM. ASSESSED AND NOTED NO SWELLING, NO BRUISING ON HER FACE. STILL WAITING FOR 'S RETURN CALL. WILL CONTINUE TO MONITOR.
[2023-02-01 07:31] LABS: BASOPHILS % (AUTO) 0.3 % (0.0-2.0); EOSINOPHILS # (AUTO) 0.2 K/uL (0.0-0.4); EOSINOPHILS % (AUTO) 2.5 % (0.0-4.0); HEMATOCRIT 27.8 % (36-48); HEMOGLOBIN 9.3 g/dL (12.0-16.0); LYMPHOCYTES # (AUTO) 1.8 K/uL (1.0-5.5); LYMPHOCYTES % (AUTO) 29.1 % (20.5-51.5); MEAN CORPUSCULAR HEMOGLOBIN 29 pg (27-31); MEAN CORPUSCULAR HGB CONC 33 % (32-36); MEAN CORPUSCULAR VOLUME 88 fL (79.0-98.0); MONOCYTES # (AUTO) 0.3 K/uL (0.0-1.0); MONOCYTES % (AUTO) 5.3 % (1.7-9.3); NEUTROPHILS # (AUTO) 3.9 K/uL (1.8-7.7); NEUTROPHILS % (AUTO) 62.8 % (40.0-70.0); PLATELET COUNT (AUTO) 194 K/uL (130-430); RED BLOOD CELL COUNT(AUTO) 3.15 MIL/uL (4.2-6.2); RED CELL DISTRIBUTION WIDTH 14.6 % (9.0-15.0); WHITE BLOOD COUNT (AUTO) 6.3 K/uL (4.8-10.8)
[2023-02-01 08:07] VITALS: BP_SYST 113
[2023-02-01 08:12] LABS: ALBUMIN 2.9 g/dL (3.4-4.8); CALCIUM 8.7 mg/dL (8.4-11.0); CREATININE 0.75 mg/dL (0.55-1.30); GENTAMICIN,RANDOM 3.2 ug/mL; TOTAL BILIRUBIN 0.2 mg/dL (0.0-1.0); TOTAL IRON BIND. CAPACITY 283 ug/dL (250-450)
--- NOTE | 2023-02-01 09:46 | NUR ---
Marriage And Family Social Worker BRAND EXECUTIVE met with pt. at bedside with [employer] Teacher and Admitting Dr. Pt. spoke slow and in a very low voice. Pt. stated she had been on hospice for her breast cancer and had been diagnosed in 2020. Pt. also has lupus and was given steroids to treat. Pt. stated this made the cancer appear as if it was getting better so she was taken off hospice and put on palliative. During this interview, pt. would not answer specific questions, wanted to tell entire health history and could not remember specifics such as why port was place, who is oncologist, who is hospice company.... until redirected, question asked several times. 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 Pt. finally stated the following. She had been with [facility] and then [facility]. She has an apt. with Dr. Donahue from [facility] to have infected port removed. CM looked up name for Dr. Donahue, and spoke to the his office who confirmed pt. has a scheduled procedure to have port removed. BRAND EXECUTIVE provided pt. with a business card and asked pt. to call if she had any questions or concerns.
[2023-02-01 12:10] VITALS: BP_SYST 111
[2023-02-01] MEDS: FAMOTIDINE PF 20 MG/2 ML VIAL IVP SCH ×2 (12:19→20:44)
[2023-02-01 16:00] VITALS: BP_SYST 120
[2023-02-01] MEDS ORDERED: METHYLPREDNISOLONE SOD SUCC 40 MG/ML VIAL IVP ONE (16:30)
--- NOTE | 2023-02-01 16:34 | NUR ---
Dietitian Recommendations * Consider advance to Regular diet LP, MS, RD Please refer to Nutrition Assessment for details. Addendum: 02/01/23 at [address] Amended: Links added.
[2023-02-01] MEDS: MICAFUNGIN SODIUM 100 MG in NS 100 ML IV SCH (19:10)
[2023-02-01 20:00] VITALS: BP_SYST 110
[2023-02-01] MEDS: GENTAMICIN SULFATE 350 MG in NS 100 ML IV SCH (20:57)
[2023-02-01] MEDS ORDERED: METHYLPREDNISOLONE SOD SUCC 40 MG/ML VIAL IVP SCH (21:00)
[2023-02-02 00:09] VITALS: BP_SYST 102
[2023-02-02] MEDS: DIPHENHYDRAMINE INJ 50 MG/ML VIAL IVP PRN ×6 (00:25→20:49)
[2023-02-02] MEDS: HYDROmorphone 2 MG/ML VIAL IVP PRN ×6 (00:30→20:50)
--- NOTE | 2023-02-02 00:44 | NUR ---
PAGED DR. BRADLEY @0040. RN ESTHER REQUESTED TO CALL TO DR. BRADLEY FOR NEW ORDER. NOTIFIED DUC WHO IS GAS METER INSTALLER.
[2023-02-02] MEDS ORDERED: DOCUSATE SODIUM 250 MG CAPSULE PO PRN (01:15)
[2023-02-02] MEDS ORDERED: SODIUM PHOSPHATE,MONO-DIBASIC 133 ML ENEMA RC ONE ×2 (01:15→01:45)
[2023-02-02] MEDS: LORazepam 2 MG/ML VIAL IVP PRN ×4 (01:54→21:10)
--- NOTE | 2023-02-02 05:40 | NUR ---
Patient is alert, oriented, she has been extremely demanding during the shift and needy. Patient ask for Dilaudid and Benadryl every four hours and before it is due. Patient requested an enema at nearly 0100 AM, she states she was not constipated but feels uncomfortable with her bowels. Dr. Rubin was called, he ordered fleets enema X1, and PRN Colace for constipation, patient did have large results. No emesis noted, vitals are stable. Patient was also medicated with IV Ativan 1mg IV, it is ordered Q 6 hours; she was less anxious after taking the medication. Patient's mother remained with patient all night, patient was checked frequently. Safety maintained.
[2023-02-02 08:06] LABS: FERRITIN 73 ng/mL (15-150)
[2023-02-02] MEDS: FAMOTIDINE PF 20 MG/2 ML VIAL IVP SCH ×2 (08:35→21:00)
[2023-02-02 11:08] VITALS: BP_SYST 110
[2023-02-02] MEDS ORDERED: HYDROCORTISONE 2.5%, 30 GM TOPICAL CREAM TP PRN (12:00)
[2023-02-02] MEDS: LR 1,000 ML IV SCH ×2 (12:37→22:00)
[2023-02-02] MEDS: LIDOCAINE PATCH 5% 1 EA TP PRN (16:43)
[2023-02-02 17:37] VITALS: BP_SYST 128
--- NOTE | 2023-02-02 18:30 | NUR ---
Medicated per order for pain with good results,tolerating diet fair,continue with plan of care.
--- NOTE | 2023-02-02 19:50 | NUR ---
ASSUMED CARE OF PATIENT, WALKING IN HALLWAY, AGITATED. NURSE ACCOMPANIED PATIENT BACK TO BED. EMOTIONAL SUPPORT PROVIDED. VSS, AFEBRILE. ASSESSMENT COMPLETED. SEE CHART
[2023-02-02 20:40] VITALS: BP_SYST 117
[2023-02-03 00:15] VITALS: BP_SYST 105
[2023-02-03] MEDS: HYDROmorphone 2 MG/ML VIAL IVP PRN ×5 (00:56→14:40)
[2023-02-03] MEDS: DIPHENHYDRAMINE INJ 50 MG/ML VIAL IVP PRN ×4 (02:41→14:40)
[2023-02-03] MEDS: LORazepam 2 MG/ML VIAL IVP PRN ×3 (03:20→16:38)
--- NOTE | 2023-02-03 07:29 | NUR ---
REPORT GIVEN TO ONCOMING RN. PATIENT WAS MEDICATED ORDERED FOR PAIN TO ABD AND LOWER BACK. SEE CHART.
[2023-02-03 08:00] VITALS: BP_SYST 102
[2023-02-03] MEDS: LR 1,000 ML IV SCH (08:00)
[2023-02-03] MEDS: FAMOTIDINE PF 20 MG/2 ML VIAL IVP SCH (09:00)
[2023-02-03 12:00] VITALS: BP_SYST 109
[2023-02-03] MEDS ORDERED: DIAZEPAM 10 MG/2 ML DISP.SYRIN IVP ONE (15:45)
[2023-02-03] MEDS ORDERED: DIAZEPAM 5 MG TABLET (VALIUM) PO ONE (16:00)
[2023-02-03] MEDS ORDERED: HYDROmorphone 1 MG/ML INJ. CARTRIDGE IVP ONE (16:15)
--- NOTE | 2023-02-03 17:57 | NUR ---
pt d/c to home @1700. aware central line in place for surgical procedure tomorrow. vss. pt ambulatory no c/o pain or SOB.
--- NOTE | 2023-02-04 09:56 | NUR ---
SENT PACKET TO ARLET AT [facility] FAX#[phone] iv
--- NOTE | 2023-02-04 11:48 | NUR ---
Spoke to Melanie at [facility]-She has received order for care/IV ABX-she is processing the order and will carry out the orders
--- NOTE | 2023-02-04 14:05 | NUR ---
Spoke w/ Melanie at [facility]- the patient is a "do not admit" due to previous non-compliance issues. DC marketing planner will pursue other infusion companies for the patient for IV ABX.
--- NOTE | 2023-02-04 14:30 | NUR ---
I SENT THE PACKET OVER TO [facility] FOR REVIEW TO SEE IF THEY WILL SERVICE . WILL SEND MORE PACKETS OUT TO OTHER INFUSION COMPANIES
--- NOTE | 2023-02-04 16:14 | NUR ---
SENT PACKET OVER TO [facility] THEY SAID NO TO LACK OF STAFF IN THE AREA. [facility] IS STILLING WORKING ON IT TALK TO CULVER AT [phone]. SHOULD HAVE A ANSWER IN THE AM. ALSO SENT IT TO JULIA FRANK AT FAX# [phone] AND DIRECT # AT [phone]
[2023-02-05 12:06] LABS: CA 27.29 <9.0 U/mL (0.0-38.6)
== END 2023-02-03 17:00 | disposition home health service (06) | DRG 314 ==
LOC: SED 14:19 → STU 17:13 → SMU 02-01 14:51
PROVIDERS: ADMIT Internal Medicine; ATTEND Internal Medicine
DX: T80.211A Bloodstream infection due to central venous catheter, initial encounter (principal); A41.50 Gram-negative sepsis, unspecified; E44.1 Mild protein-calorie malnutrition; Z68.1 Body mass index [BMI] 19.9 or less, adult; F41.9 Anxiety disorder, unspecified; D70.3 Neutropenia due to infection; D64.9 Anemia, unspecified; C50.919 Malignant neoplasm of unspecified site of unspecified female breast; Z66 Do not resuscitate; G89.4 Chronic pain syndrome; Y83.8 Other surgical procedures as the cause of abnormal reaction of the patient, or of later complication, without mention of misadventure at the time of the procedure; Z88.0 Allergy status to penicillin; Z88.2 Allergy status to sulfonamides; Z88.8 Allergy status to other drugs, medicaments and biological substances; Z88.6 Allergy status to analgesic agent; Z88.1 Allergy status to other antibiotic agents; Z91.041 Radiographic dye allergy status; Z91.014 Allergy to mammalian meats; Z79.899 Other long term (current) drug therapy; Z85.3 Personal history of malignant neoplasm of breast; Y92.89 Other specified places as the place of occurrence of the external cause
CPT/HCPCS: 36415; 71045; 71250-TC; 76376; 80053; 80170; 81000; 82009; 82150; 82550; 82607; 82728; 82746; 83540; 83550; 83605; 83690; 84439; 84443; 84484; 84703; 85007; 85025; 85027; 85610-TC; 85730-TC; 86300; 87040; 87305; 87497; 93005; 96361; 96365; 96375; 99291; C1751; G0378; J0692; J1030; J1170; J1200; J1580; J1956; J2020; J2060; J2248; J2270; J2405; J3490; J7030; J7060; J7120

== ENCOUNTER 2023-02-11 10:47 | Emergency (ER) | payer OTHER, MEDICAID ==
[~2023-02-11] VITALS: Ht 165.1 cm; Wt 52.2 kg
[~2023-02-11 10:47] MED LIST changes: -NITR-85 PO
[2023-02-11 11:04] VITALS: BP_SYST 110; PULSE 100; RESP 16; TEMP 97.8; O2SAT 99
[2023-02-11 12:42] LABS: BASOPHILS % (AUTO) 0.4 % (0.0-2.0); EOSINOPHILS % (AUTO) 0.5 % (0.0-4.0); HEMATOCRIT 39.1 % (36-48); HEMOGLOBIN 12.7 g/dL (12.0-16.0); LYMPHOCYTES # (AUTO) 2.1 K/uL (1.0-5.5); LYMPHOCYTES % (AUTO) 30.6 % (20.5-51.5); MEAN CORPUSCULAR HEMOGLOBIN 29 pg (27-31); MEAN CORPUSCULAR HGB CONC 33 % (32-36); MEAN CORPUSCULAR VOLUME 88 fL (79.0-98.0); MONOCYTES # (AUTO) 0.2 K/uL (0.0-1.0); MONOCYTES % (AUTO) 2.9 % (1.7-9.3); NEUTROPHILS # (AUTO) 4.5 K/uL (1.8-7.7); NEUTROPHILS % (AUTO) 65.6 % (40.0-70.0); PLATELET COUNT (AUTO) 373 K/uL (130-430); RED BLOOD CELL COUNT(AUTO) 4.46 MIL/uL (4.2-6.2); RED CELL DISTRIBUTION WIDTH 15.3 % (9.0-15.0); WHITE BLOOD COUNT (AUTO) 6.9 K/uL (4.8-10.8)
[2023-02-11 13:28] LABS: ALBUMIN 4.2 g/dL (3.4-4.8); CALCIUM 9.2 mg/dL (8.4-11.0); CREATININE 0.8 mg/dL (0.55-1.30); TOTAL BILIRUBIN 0.6 mg/dL (0.0-1.0)
[2023-02-11 13:43] LABS: BILIRUBIN,URINE NEGATIVE (NEGATIVE); BLOOD, URINE NEGATIVE (NEGATIVE); COLOR,URINE YELLOW (YELLOW); GLUCOSE,URINE NEGATIVE (NEGATIVE); KETONES,URINE NEGATIVE (NEGATIVE); LEUKOCYTE ESTERASE ,URINE NEGATIVE (NEGATIVE); NITRITE, URINE NEGATIVE (NEGATIVE); PH,URINE 5.5 (5.0-8.0); PROTEIN URINE TRACE (NEGATIVE); UROBILINOGEN,URINE 0.2 (0.2-1.0)
[2023-02-11 14:02] LABS: CLARITY/URINE SLIGHTLY HAZY (CLEAR)
[2023-02-11] MEDS ORDERED: LORA-259 PO (14:07)
[2023-02-11 14:11] LABS: BACTERIA,URINE FEW /HPF (None Seen); RBC,URINE 0-3 /HPF (0-3); WBC,URINE 0-3 /HPF (0-3)
[2023-02-11 14:12] LABS: HYALINE CASTS, URINE 0-3 /LPF (None Seen); MUCUS,URINE 2+ /LPF (None Seen)
[2023-02-11 14:36] VITALS: BP_SYST 110; PULSE 100; RESP 16; TEMP 97.8; O2SAT 99
== END 2023-02-11 14:36 | disposition home or self-care (01) ==
LOC: SED 10:47
DX: R53.1 Weakness (principal); R42 Dizziness and giddiness; R06.02 Shortness of breath; K21.9 Gastro-esophageal reflux disease without esophagitis; Z85.3 Personal history of malignant neoplasm of breast; Z88.0 Allergy status to penicillin; Z88.1 Allergy status to other antibiotic agents; Z88.2 Allergy status to sulfonamides; Z88.5 Allergy status to narcotic agent; Z88.8 Allergy status to other drugs, medicaments and biological substances; Z91.040 Latex allergy status; Z79.899 Other long term (current) drug therapy
CPT/HCPCS: 36415; 71045; 80053; 81000; 83605; 85025; 99284

== ENCOUNTER 2023-03-03 15:12 | Emergency (ER) | payer OTHER, MEDICAID ==
[~2023-03-03] VITALS: Ht 165.1 cm; Wt 52.2 kg
[2023-03-03 15:20] VITALS: BP_SYST 122; PULSE 102; RESP 18; TEMP 98.4; O2SAT 96
[2023-03-03] MEDS ORDERED: NACL 0.9% 1,000 ML IV ONE (16:00)
[2023-03-03] MEDS ORDERED: ONDANSETRON HCL 4 MG/2 ML VIAL IVP ONE (16:00)
[2023-03-03] MEDS ORDERED: MORPHINE 4 MG INJ. 4 MG/ML VIAL IVP ONE (16:00)
[2023-03-03 16:30] LABS: BILIRUBIN,URINE NEGATIVE (NEGATIVE); CLARITY/URINE CLEAR (CLEAR); COLOR,URINE YELLOW (YELLOW); GLUCOSE,URINE NEGATIVE (NEGATIVE); KETONES,URINE NEGATIVE (NEGATIVE); LEUKOCYTE ESTERASE ,URINE NEGATIVE (NEGATIVE); NITRITE, URINE NEGATIVE (NEGATIVE); PROTEIN URINE NEGATIVE (NEGATIVE); UROBILINOGEN,URINE 0.2 (0.2-1.0)
[2023-03-03 16:31] LABS: BLOOD, URINE TRACE (NEGATIVE)
[2023-03-03 16:36] LABS: MUCUS,URINE 1+ /LPF (None Seen)
[2023-03-03 16:37] LABS: BACTERIA,URINE RARE /HPF (None Seen); WBC,URINE NONE SEEN /HPF (0-3)
[2023-03-03 16:41] LABS: BASOPHILS % (AUTO) 0.4 % (0.0-2.0); EOSINOPHILS % (AUTO) 0.9 % (0.0-4.0); HEMATOCRIT 33.3 % (36-48); HEMOGLOBIN 10.7 g/dL (12.0-16.0); LYMPHOCYTES # (AUTO) 1.7 K/uL (1.0-5.5); LYMPHOCYTES % (AUTO) 33.8 % (20.5-51.5); MEAN CORPUSCULAR HEMOGLOBIN 28 pg (27-31); MEAN CORPUSCULAR HGB CONC 32 % (32-36); MEAN CORPUSCULAR VOLUME 88 fL (79.0-98.0); MONOCYTES # (AUTO) 0.2 K/uL (0.0-1.0); MONOCYTES % (AUTO) 3.9 % (1.7-9.3); PLATELET COUNT (AUTO) 227 K/uL (130-430)
[2023-03-03 16:54] LABS: CALCIUM 8.6 mg/dL (8.4-11.0); CREATININE 0.73 mg/dL (0.55-1.30)
[2023-03-03 16:59] LABS: ALBUMIN 3.6 g/dL (3.4-4.8); TOTAL BILIRUBIN 0.4 mg/dL (0.0-1.0)
[2023-03-03] MEDS ORDERED: FAMOTIDINE PF 20 MG/2 ML VIAL IVP ONE (19:15)
[2023-03-03] MEDS ORDERED: DIPHENHYDRAMINE INJ 50 MG/ML VIAL IVP ONE (19:15)
[2023-03-03 19:29] VITALS: BP_SYST 133; PULSE 74; RESP 18; TEMP 97.3; O2SAT 97
== END 2023-03-03 19:29 | disposition home or self-care (01) ==
LOC: SED 15:12
DX: R10.9 Unspecified abdominal pain (principal); R30.0 Dysuria; R11.10 Vomiting, unspecified; K21.9 Gastro-esophageal reflux disease without esophagitis; Z88.0 Allergy status to penicillin; Z88.1 Allergy status to other antibiotic agents; Z88.2 Allergy status to sulfonamides; Z88.5 Allergy status to narcotic agent; Z88.6 Allergy status to analgesic agent; Z91.041 Radiographic dye allergy status; Z91.018 Allergy to other foods; Z85.3 Personal history of malignant neoplasm of breast; Z79.899 Other long term (current) drug therapy
CPT/HCPCS: 99285; 74176; 96374; 96375; 96361; 80053; 81000; 85025; 36415; 76376; J1200; J3490; J2405; J2270; J7030

== ENCOUNTER 2023-03-06 10:37 | Emergency (ER) | payer OTHER, MEDICAID ==
[~2023-03-06] VITALS: Ht 165.1 cm; Wt 56.7 kg
[2023-03-06 10:37] VITALS: BP_SYST 128; PULSE 89; RESP 18; TEMP 97.2; O2SAT 96
[2023-03-06] MEDS ORDERED: DIPHENHYDRAMINE INJ 50 MG/ML VIAL IVP ONE (11:15)
[2023-03-06] MEDS ORDERED: NACL 0.9% 1,000 ML IV ONE (11:15)
[2023-03-06] MEDS ORDERED: MORPHINE 4 MG INJ. 4 MG/ML VIAL IVP ONE (11:15)
[2023-03-06 11:42] LABS: BASOPHILS % (AUTO) 0.4 % (0.0-2.0); EOSINOPHILS # (AUTO) 0.1 K/uL (0.0-0.4); EOSINOPHILS % (AUTO) 1.8 % (0.0-4.0); HEMATOCRIT 32.3 % (36-48); HEMOGLOBIN 10.5 g/dL (12.0-16.0); LYMPHOCYTES # (AUTO) 1.9 K/uL (1.0-5.5); LYMPHOCYTES % (AUTO) 34.9 % (20.5-51.5); MEAN CORPUSCULAR HEMOGLOBIN 29 pg (27-31); MEAN CORPUSCULAR HGB CONC 33 % (32-36); MEAN CORPUSCULAR VOLUME 88 fL (79.0-98.0); MONOCYTES # (AUTO) 0.2 K/uL (0.0-1.0); NEUTROPHILS # (AUTO) 3.1 K/uL (1.8-7.7); NEUTROPHILS % (AUTO) 58.9 % (40.0-70.0); PLATELET COUNT (AUTO) 265 K/uL (130-430); RED BLOOD CELL COUNT(AUTO) 3.67 MIL/uL (4.2-6.2); RED CELL DISTRIBUTION WIDTH 15.1 % (9.0-15.0); WHITE BLOOD COUNT (AUTO) 5.3 K/uL (4.8-10.8)
[2023-03-06 12:01] LABS: CALCIUM 8.9 mg/dL (8.4-11.0); CREATININE 0.67 mg/dL (0.55-1.30)
[2023-03-06 12:05] LABS: ALBUMIN 3.8 g/dL (3.4-4.8); TOTAL BILIRUBIN 0.2 mg/dL (0.0-1.0)
[2023-03-06 12:42] LABS: BILIRUBIN,URINE NEGATIVE (NEGATIVE); BLOOD, URINE NEGATIVE (NEGATIVE); COLOR,URINE YELLOW (YELLOW); GLUCOSE,URINE NEGATIVE (NEGATIVE); KETONES,URINE NEGATIVE (NEGATIVE); LEUKOCYTE ESTERASE ,URINE NEGATIVE (NEGATIVE); NITRITE, URINE NEGATIVE (NEGATIVE); PROTEIN URINE NEGATIVE (NEGATIVE); UROBILINOGEN,URINE 0.2 (0.2-1.0)
[2023-03-06 12:43] LABS: CLARITY/URINE HAZY (CLEAR)
[2023-03-06] MEDS ORDERED: LORazepam 2 MG/ML VIAL IVP ONE (13:00)
[2023-03-06 15:49] VITALS: BP_SYST 135; PULSE 74; RESP 17; TEMP 98.3; O2SAT 97
== END 2023-03-06 15:58 | disposition home or self-care (01) ==
LOC: SED 10:37
DX: G89.29 Other chronic pain (principal); R10.9 Unspecified abdominal pain; K21.9 Gastro-esophageal reflux disease without esophagitis; Z88.0 Allergy status to penicillin; Z88.1 Allergy status to other antibiotic agents; Z88.2 Allergy status to sulfonamides; Z91.041 Radiographic dye allergy status; Z88.5 Allergy status to narcotic agent; Z88.6 Allergy status to analgesic agent; Z91.040 Latex allergy status; Z91.018 Allergy to other foods; Z85.3 Personal history of malignant neoplasm of breast; Z79.899 Other long term (current) drug therapy
CPT/HCPCS: 99284; 96374; 96361; 96375; 80053; 83690; 85025; 36415; 81025; 81003; J1200; J2060; J2270; J7030

== ENCOUNTER 2023-03-26 12:53 | Emergency (ER) | payer OTHER, MEDICAID ==
[~2023-03-26] VITALS: Ht 165.1 cm; Wt 54.4 kg
[2023-03-26 13:34] VITALS: BP_SYST 111; PULSE 89; RESP 16; TEMP 98; O2SAT 100
[2023-03-26 15:51] VITALS: TEMP 97.4
[2023-03-26 15:52] LABS: BASOPHILS % (AUTO) 0.3 % (0.0-2.0); EOSINOPHILS # (AUTO) 0.1 K/uL (0.0-0.4); EOSINOPHILS % (AUTO) 2.1 % (0.0-4.0); HEMATOCRIT 34.4 % (36-48); HEMOGLOBIN 11.1 g/dL (12.0-16.0); LYMPHOCYTES # (AUTO) 2.1 K/uL (1.0-5.5); MEAN CORPUSCULAR HEMOGLOBIN 28 pg (27-31); MEAN CORPUSCULAR HGB CONC 32 % (32-36); MEAN CORPUSCULAR VOLUME 87 fL (79.0-98.0); MONOCYTES # (AUTO) 0.3 K/uL (0.0-1.0); MONOCYTES % (AUTO) 5.4 % (1.7-9.3); NEUTROPHILS # (AUTO) 3.2 K/uL (1.8-7.7); NEUTROPHILS % (AUTO) 55.2 % (40.0-70.0); PLATELET COUNT (AUTO) 273 K/uL (130-430); RED BLOOD CELL COUNT(AUTO) 3.95 MIL/uL (4.2-6.2); WHITE BLOOD COUNT (AUTO) 5.8 K/uL (4.8-10.8)
[2023-03-26 16:03] LABS: CALCIUM 8.7 mg/dL (8.4-11.0); CREATININE 0.67 mg/dL (0.55-1.30); POTASSIUM 4.2 mmol/L (3.5-5.1)
[2023-03-26 16:07] LABS: ALBUMIN 3.8 g/dL (3.4-4.8); TOTAL BILIRUBIN 0.3 mg/dL (0.0-1.0)
[2023-03-26] MEDS ORDERED: ONDANSETRON HCL 4 MG/2 ML VIAL IVP ONE (16:15)
[2023-03-26] MEDS ORDERED: MORPHINE 4 MG INJ. 4 MG/ML VIAL IVP ONE (16:15)
[2023-03-26] MEDS ORDERED: DIPHENHYDRAMINE INJ 50 MG/ML VIAL IVP ONE (16:15)
[2023-03-26 16:36] LABS: CLARITY/URINE CLOUDY (CLEAR); COLOR,URINE YELLOW (YELLOW)
[2023-03-26 16:37] LABS: BILIRUBIN,URINE NEGATIVE (NEGATIVE); BLOOD, URINE 3+ (NEGATIVE); GLUCOSE,URINE NEGATIVE (NEGATIVE); KETONES,URINE NEGATIVE (NEGATIVE); LEUKOCYTE ESTERASE ,URINE NEGATIVE (NEGATIVE); NITRITE, URINE NEGATIVE (NEGATIVE); PROTEIN URINE 2+ (NEGATIVE); UROBILINOGEN,URINE 0.2 (0.2-1.0)
[2023-03-26 16:47] LABS: BACTERIA,URINE MODERATE /HPF (None Seen); RBC,URINE >100 /HPF (0-3); WBC,URINE 0-3 /HPF (0-3)
[2023-03-26 16:48] LABS: MUCUS,URINE None Seen /LPF (None Seen)
[2023-03-26 17:55] VITALS: BP_SYST 122; PULSE 83; RESP 19; O2SAT 99
== END 2023-03-26 17:51 | disposition home or self-care (01) ==
LOC: SED 12:53
DX: N83.201 Unspecified ovarian cyst, right side (principal); N93.9 Abnormal uterine and vaginal bleeding, unspecified; K21.9 Gastro-esophageal reflux disease without esophagitis; Z88.0 Allergy status to penicillin; Z88.1 Allergy status to other antibiotic agents; Z88.5 Allergy status to narcotic agent; Z88.6 Allergy status to analgesic agent; Z91.041 Radiographic dye allergy status; Z91.018 Allergy to other foods; Z85.3 Personal history of malignant neoplasm of breast; Z88.8 Allergy status to other drugs, medicaments and biological substances; Z79.899 Other long term (current) drug therapy
CPT/HCPCS: 99285; 74177; 96374; 96375; 80053; 81000; 83690; 85025; 87086; 36415; 76376; 81025; J1200; J2405; J2270; Q9967

== ENCOUNTER 2023-04-09 11:58 | Emergency (ER) | payer OTHER, MEDICAID ==
[~2023-04-09] VITALS: Ht 157.5 cm; Wt 47.6 kg
[2023-04-09 12:06] VITALS: BP_SYST 128; PULSE 85; RESP 18; TEMP 98.3; O2SAT 98
[2023-04-09 12:46] LABS: BILIRUBIN,URINE NEGATIVE (NEGATIVE); BLOOD, URINE NEGATIVE (NEGATIVE); CLARITY/URINE CLEAR (CLEAR); COLOR,URINE YELLOW (YELLOW); GLUCOSE,URINE NEGATIVE (NEGATIVE); KETONES,URINE NEGATIVE (NEGATIVE); LEUKOCYTE ESTERASE ,URINE NEGATIVE (NEGATIVE); NITRITE, URINE NEGATIVE (NEGATIVE); PH,URINE 8.5 (5.0-8.0); PROTEIN URINE NEGATIVE (NEGATIVE); UROBILINOGEN,URINE 0.2 (0.2-1.0)
[2023-04-09 13:05] LABS: BASOPHILS % (AUTO) 0.3 % (0.0-2.0); EOSINOPHILS # (AUTO) 0.1 K/uL (0.0-0.4); EOSINOPHILS % (AUTO) 1.2 % (0.0-4.0); HEMOGLOBIN 10.9 g/dL (12.0-16.0); LYMPHOCYTES # (AUTO) 2.1 K/uL (1.0-5.5); LYMPHOCYTES % (AUTO) 37.5 % (20.5-51.5); MEAN CORPUSCULAR HEMOGLOBIN 28 pg (27-31); MEAN CORPUSCULAR HGB CONC 32 % (32-36); MEAN CORPUSCULAR VOLUME 87 fL (79.0-98.0); MONOCYTES # (AUTO) 0.5 K/uL (0.0-1.0); MONOCYTES % (AUTO) 8.3 % (1.7-9.3); NEUTROPHILS # (AUTO) 2.9 K/uL (1.8-7.7); NEUTROPHILS % (AUTO) 52.7 % (40.0-70.0); PLATELET COUNT (AUTO) 252 K/uL (130-430); RED BLOOD CELL COUNT(AUTO) 3.93 MIL/uL (4.2-6.2); RED CELL DISTRIBUTION WIDTH 16.1 % (9.0-15.0); WHITE BLOOD COUNT (AUTO) 5.6 K/uL (4.8-10.8)
[2023-04-09] MEDS: DIPHENHYDRAMINE INJ 50 MG/ML VIAL IVP ONE (13:21)
[2023-04-09] MEDS: MORPHINE 4 MG INJ. 4 MG/ML VIAL IVP ONE (13:21)
[2023-04-09] MEDS: NACL 0.9% 1,000 ML IV ONE (13:24)
[2023-04-09 13:25] LABS: CALCIUM 8.9 mg/dL (8.4-11.0); CREATININE 0.65 mg/dL (0.55-1.30); POTASSIUM 4.7 mmol/L (3.5-5.1)
[2023-04-09 13:29] LABS: ALBUMIN 3.6 g/dL (3.4-4.8); TOTAL BILIRUBIN 0.3 mg/dL (0.0-1.0); TOTAL PROTEIN, SERUM 6.8 g/dL (6.4-8.3)
[2023-04-09] MEDS ORDERED: LORA-259 PO (13:42)
[2023-04-09 14:12] VITALS: BP_SYST 128; PULSE 85; RESP 18; TEMP 98.3; O2SAT 98
== END 2023-04-09 14:13 | disposition home or self-care (01) ==
LOC: SED 11:58
DX: R10.13 Epigastric pain (principal); R11.2 Nausea with vomiting, unspecified; K21.9 Gastro-esophageal reflux disease without esophagitis; Z88.0 Allergy status to penicillin; Z88.1 Allergy status to other antibiotic agents; Z88.2 Allergy status to sulfonamides; Z88.5 Allergy status to narcotic agent; Z91.041 Radiographic dye allergy status; Z91.040 Latex allergy status; Z91.018 Allergy to other foods; Z85.3 Personal history of malignant neoplasm of breast; Z79.899 Other long term (current) drug therapy
CPT/HCPCS: 99284; 96374; 96361; 96375; 80053; 83690; 85025; 36415; 81025; 81003; J1200; J2270; J7030

== ENCOUNTER 2023-04-19 13:17 | Emergency (ER) | payer OTHER, MEDICAID ==
[~2023-04-19] VITALS: Ht 165.1 cm; Wt 52.2 kg
[2023-04-19 14:45] VITALS: BP_SYST 115; PULSE 75; RESP 16; TEMP 98.7; O2SAT 100
[2023-04-19] MEDS: ACETAMINOPHEN 325 MG TABLET PO ONE ×2 (15:42→15:46)
[2023-04-19 15:45] LABS: BASOPHILS % (AUTO) 0.3 % (0.0-2.0); EOSINOPHILS % (AUTO) 0.3 % (0.0-4.0); HEMATOCRIT 36.2 % (36-48); HEMOGLOBIN 11.8 g/dL (12.0-16.0); LYMPHOCYTES # (AUTO) 2.2 K/uL (1.0-5.5); MEAN CORPUSCULAR HEMOGLOBIN 28 pg (27-31); MEAN CORPUSCULAR HGB CONC 33 % (32-36); MEAN CORPUSCULAR VOLUME 85 fL (79.0-98.0); MONOCYTES # (AUTO) 0.3 K/uL (0.0-1.0); MONOCYTES % (AUTO) 5.2 % (1.7-9.3); NEUTROPHILS # (AUTO) 3.8 K/uL (1.8-7.7); NEUTROPHILS % (AUTO) 59.2 % (40.0-70.0); PLATELET COUNT (AUTO) 316 K/uL (130-430); RED BLOOD CELL COUNT(AUTO) 4.24 MIL/uL (4.2-6.2); RED CELL DISTRIBUTION WIDTH 16.1 % (9.0-15.0); WHITE BLOOD COUNT (AUTO) 6.4 K/uL (4.8-10.8)
[2023-04-19] MEDS ORDERED: ACETAMINOPHEN 650 MG SUPP.RECT RC ONE (15:45)
[2023-04-19 15:50] LABS: BILIRUBIN,URINE NEGATIVE (NEGATIVE); COLOR,URINE YELLOW (YELLOW); GLUCOSE,URINE NEGATIVE (NEGATIVE); KETONES,URINE NEGATIVE (NEGATIVE); LEUKOCYTE ESTERASE ,URINE NEGATIVE (NEGATIVE); NITRITE, URINE NEGATIVE (NEGATIVE); PROTEIN URINE NEGATIVE (NEGATIVE); UROBILINOGEN,URINE 0.2 (0.2-1.0)
[2023-04-19 16:15] LABS: BLOOD, URINE TRACE (NEGATIVE); CLARITY/URINE HAZY (CLEAR)
[2023-04-19 16:17] LABS: BACTERIA,URINE FEW /HPF (None Seen); MUCUS,URINE 1+ /LPF (None Seen); RBC,URINE 0-3 /HPF (0-3); WBC,URINE 0-3 /HPF (0-3)
[2023-04-19] MEDS ORDERED: MORPHINE 4 MG INJ. 4 MG/ML VIAL IM ONE (21:30)
[2023-04-19] MEDS ORDERED: MORPHINE 2 MG/ML INJ. SYRINGE IVP ONE (21:30)
[2023-04-19 21:50] VITALS: BP_SYST 115; PULSE 75; RESP 16; TEMP 98.7; O2SAT 100
== END 2023-04-19 21:56 | disposition home or self-care (01) ==
LOC: SED 13:17
DX: R10.2 Pelvic and perineal pain (principal); R14.0 Abdominal distension (gaseous); R11.10 Vomiting, unspecified; K21.9 Gastro-esophageal reflux disease without esophagitis; Z88.0 Allergy status to penicillin; Z88.1 Allergy status to other antibiotic agents; Z88.2 Allergy status to sulfonamides; Z88.5 Allergy status to narcotic agent; Z88.6 Allergy status to analgesic agent; Z91.041 Radiographic dye allergy status; Z88.8 Allergy status to other drugs, medicaments and biological substances; Z79.899 Other long term (current) drug therapy
CPT/HCPCS: 99285; 76700; 96374; 81000; 83690; 85025; 36415; 76856; 81025; J2270

== ENCOUNTER 2023-05-14 10:44 | Emergency (ER) | payer OTHER, MEDICAID ==
[~2023-05-14] VITALS: Ht 165.1 cm; Wt 54.4 kg
[~2023-05-14 10:44] MED LIST changes: +HYDR2TAB4 PO; +LORA2TAB95 PO; +NALO0.4V2 INJ
[2023-05-14 10:50] VITALS: BP_SYST 116; PULSE 95; RESP 14; TEMP 97.9; O2SAT 100
[2023-05-14] MEDS ORDERED: fentaNYL CITRATE/PF 100 MCG/2 ML AMP IVP ONE (11:45)
[2023-05-14] MEDS ORDERED: NACL 0.9% 1,000 ML IV ONE (11:45)
[2023-05-14 12:06] LABS: BASOPHILS % (AUTO) 0.4 % (0.0-2.0); EOSINOPHILS % (AUTO) 0.5 % (0.0-4.0); HEMATOCRIT 35.7 % (36-48); HEMOGLOBIN 11.6 g/dL (12.0-16.0); LYMPHOCYTES # (AUTO) 1.5 K/uL (1.0-5.5); LYMPHOCYTES % (AUTO) 32.9 % (20.5-51.5); MEAN CORPUSCULAR HEMOGLOBIN 28 pg (27-31); MEAN CORPUSCULAR HGB CONC 33 % (32-36); MEAN CORPUSCULAR VOLUME 86 fL (79.0-98.0); MONOCYTES # (AUTO) 0.3 K/uL (0.0-1.0); MONOCYTES % (AUTO) 5.8 % (1.7-9.3); NEUTROPHILS # (AUTO) 2.8 K/uL (1.8-7.7); NEUTROPHILS % (AUTO) 60.4 % (40.0-70.0); PLATELET COUNT (AUTO) 258 K/uL (130-430); RED BLOOD CELL COUNT(AUTO) 4.15 MIL/uL (4.2-6.2); RED CELL DISTRIBUTION WIDTH 16.6 % (9.0-15.0); WHITE BLOOD COUNT (AUTO) 4.6 K/uL (4.8-10.8)
[2023-05-14 12:15] LABS: CALCIUM 9.4 mg/dL (8.4-11.0); CREATININE 0.75 mg/dL (0.55-1.30); POTASSIUM 4.4 mmol/L (3.5-5.1)
[2023-05-14 12:20] LABS: TOTAL BILIRUBIN 0.6 mg/dL (0.0-1.0); TOTAL PROTEIN, SERUM 7.2 g/dL (6.4-8.3)
[2023-05-14] MEDS ORDERED: FAMOTIDINE PF 20 MG/2 ML VIAL IVP ONE (12:30)
[2023-05-14] MEDS ORDERED: DIPHENHYDRAMINE INJ 50 MG/ML VIAL IVP ONE (12:30)
[2023-05-14] MEDS ORDERED: MORPHINE 4 MG INJ. 4 MG/ML VIAL IVP ONE (13:30)
[2023-05-14 14:03] VITALS: BP_SYST 118; PULSE 78; RESP 15; TEMP 97.2; O2SAT 97
== END 2023-05-14 14:59 | disposition home or self-care (01) ==
LOC: SED 10:44
DX: K52.9 Noninfective gastroenteritis and colitis, unspecified (principal); G89.29 Other chronic pain; R10.13 Epigastric pain; R11.2 Nausea with vomiting, unspecified; K21.9 Gastro-esophageal reflux disease without esophagitis; Z88.0 Allergy status to penicillin; Z88.1 Allergy status to other antibiotic agents; Z88.2 Allergy status to sulfonamides; Z88.5 Allergy status to narcotic agent; Z88.8 Allergy status to other drugs, medicaments and biological substances; Z91.041 Radiographic dye allergy status; Z91.010 Allergy to peanuts; Z85.3 Personal history of malignant neoplasm of breast; Z79.899 Other long term (current) drug therapy
CPT/HCPCS: 99284; 96374; 96375; 96361; 80053; 85025; 87040; 36415; 83605; J1200; J3490; J3010; J2270; J7030

== ENCOUNTER 2023-05-28 11:03 | Emergency (ER) | payer OTHER, MEDICAID ==
[~2023-05-28] VITALS: Ht 167.6 cm; Wt 63.5 kg
[2023-05-28 11:22] VITALS: BP_SYST 108; PULSE 96; RESP 18; TEMP 98; O2SAT 100
[2023-05-28] MEDS ORDERED: NITR-85 PO (13:48)
[2023-05-28] MEDS ORDERED: PHEN-726 PO (13:48)
[2023-05-28 13:52] LABS: BILIRUBIN,URINE 1+ (NEGATIVE); BLOOD, URINE 1+ (NEGATIVE); CLARITY/URINE CLEAR (CLEAR); COLOR,URINE YELLOW (YELLOW); GLUCOSE,URINE NEGATIVE (NEGATIVE); KETONES,URINE 2+ (NEGATIVE); LEUKOCYTE ESTERASE ,URINE NEGATIVE (NEGATIVE); NITRITE, URINE NEGATIVE (NEGATIVE); PH,URINE 5.5 (5.0-8.0); PROTEIN URINE NEGATIVE (NEGATIVE); UROBILINOGEN,URINE 0.2 (0.2-1.0)
[2023-05-28] MEDS ORDERED: NITROFURANTOIN MONOHYD/M-CRYST 100 MG CAPSULE (MacroBID) PO ONE (14:00)
[2023-05-28] MEDS ORDERED: HYDROcodone/ACETAMIN 5-325 MG TAB (NORCO/ VICODIN) PO ONE (14:00)
[2023-05-28] MEDS ORDERED: PHENAZOPYRIDINE HCL 100 MG TABLET PO ONE (14:00)
[2023-05-28 14:07] LABS: BACTERIA,URINE FEW /HPF (None Seen); WBC,URINE 0-3 /HPF (0-3)
[2023-05-28] MEDS ORDERED: ACET-2634 PO (14:07)
[2023-05-28 14:29] VITALS: BP_SYST 108; PULSE 96; RESP 18; TEMP 98; O2SAT 100
== END 2023-05-28 14:29 | disposition home or self-care (01) ==
LOC: SED 11:03
DX: N39.0 Urinary tract infection, site not specified (principal); R30.0 Dysuria; R10.9 Unspecified abdominal pain; K21.9 Gastro-esophageal reflux disease without esophagitis; Z88.0 Allergy status to penicillin; Z88.1 Allergy status to other antibiotic agents; Z88.2 Allergy status to sulfonamides; Z91.041 Radiographic dye allergy status; Z91.010 Allergy to peanuts; Z88.8 Allergy status to other drugs, medicaments and biological substances; Z85.3 Personal history of malignant neoplasm of breast; Z79.899 Other long term (current) drug therapy
CPT/HCPCS: 81000; 81001; 81015; 87086; 99283

== ENCOUNTER 2023-06-22 00:19 | Emergency (ER) | payer OTHER, MEDICAID ==
[~2023-06-22] VITALS: Ht 165.1 cm; Wt 52.2 kg
[~2023-06-22 00:19] MED LIST changes: +ACET-2634 PO; +NITR-85 PO; +PHEN-726 PO
[2023-06-22 00:53] VITALS: BP_SYST 113; PULSE 93; RESP 17; TEMP 98.3; O2SAT 100
[2023-06-22 04:33] LABS: BASOPHILS % (AUTO) 0.3 % (0.0-2.0); EOSINOPHILS # (AUTO) 0.1 K/uL (0.0-0.4); EOSINOPHILS % (AUTO) 1.9 % (0.0-4.0); HEMATOCRIT 31.7 % (36-48); HEMOGLOBIN 10.3 g/dL (12.0-16.0); LYMPHOCYTES # (AUTO) 2.5 K/uL (1.0-5.5); MEAN CORPUSCULAR HEMOGLOBIN 28 pg (27-31); MEAN CORPUSCULAR HGB CONC 33 % (32-36); MEAN CORPUSCULAR VOLUME 86 fL (79.0-98.0); MONOCYTES # (AUTO) 0.4 K/uL (0.0-1.0); MONOCYTES % (AUTO) 7.8 % (1.7-9.3); PLATELET COUNT (AUTO) 251 K/uL (130-430); RED BLOOD CELL COUNT(AUTO) 3.69 MIL/uL (4.2-6.2); RED CELL DISTRIBUTION WIDTH 16.1 % (9.0-15.0)
[2023-06-22] MEDS ORDERED: MORPHINE 4 MG INJ. 4 MG/ML VIAL IVP ONE (05:15)
[2023-06-22 05:38] LABS: CALCIUM 9.1 mg/dL (8.4-11.0); CREATININE 0.71 mg/dL (0.55-1.30)
[2023-06-22 05:40] LABS: ALBUMIN 3.7 g/dL (3.4-4.8); BILIRUBIN,DIRECT 0.1 mg/dL (0.0-0.3); TOTAL BILIRUBIN 0.2 mg/dL (0.0-1.0); TOTAL PROTEIN, SERUM 6.5 g/dL (6.4-8.3)
[2023-06-22 06:36] LABS: BILIRUBIN,URINE NEGATIVE (NEGATIVE); BLOOD, URINE NEGATIVE (NEGATIVE); CLARITY/URINE CLEAR (CLEAR); COLOR,URINE YELLOW (YELLOW); GLUCOSE,URINE NEGATIVE (NEGATIVE); KETONES,URINE TRACE (NEGATIVE); LEUKOCYTE ESTERASE ,URINE NEGATIVE (NEGATIVE); NITRITE, URINE NEGATIVE (NEGATIVE); PROTEIN URINE NEGATIVE (NEGATIVE); UROBILINOGEN,URINE 0.2 (0.2-1.0)
[2023-06-22] MEDS ORDERED: LORazepam 2 MG/ML VIAL IVP ONE (07:00)
== END 2023-06-22 06:59 | disposition home or self-care (01) ==
LOC: SED 00:19
DX: R10.9 Unspecified abdominal pain (principal); K92.1 Melena; K21.9 Gastro-esophageal reflux disease without esophagitis; Z88.0 Allergy status to penicillin; Z88.1 Allergy status to other antibiotic agents; Z88.2 Allergy status to sulfonamides; Z88.5 Allergy status to narcotic agent; Z88.6 Allergy status to analgesic agent; Z88.8 Allergy status to other drugs, medicaments and biological substances; Z91.040 Latex allergy status; Z91.018 Allergy to other foods; Z85.3 Personal history of malignant neoplasm of breast; Z79.899 Other long term (current) drug therapy
CPT/HCPCS: 99284; 96374; 96375; 80076; 80048; 81001; 83690; 85025; 36415; 81025; 81003; J2060; J2270

== ENCOUNTER 2023-07-02 11:18 | Emergency (ER) | payer OTHER, MEDICAID ==
[~2023-07-02] VITALS: Ht 165.1 cm; Wt 52.2 kg
[2023-07-02 11:36] VITALS: BP_SYST 118; PULSE 98; RESP 20; TEMP 98.3; O2SAT 99
[2023-07-02] MEDS ORDERED: DIPHENHYDRAMINE INJ 50 MG/ML VIAL IM ONE (13:30)
[2023-07-02] MEDS ORDERED: MORPHINE 2 MG/ML INJ. SYRINGE IM ONE (13:30)
[2023-07-02 14:35] VITALS: BP_SYST 131; PULSE 99; RESP 16; TEMP 98.1; O2SAT 100
== END 2023-07-02 14:35 | disposition home or self-care (01) ==
LOC: SED 11:18
DX: M79.10 Myalgia, unspecified site (principal); K21.9 Gastro-esophageal reflux disease without esophagitis; Z88.0 Allergy status to penicillin; Z88.1 Allergy status to other antibiotic agents; Z88.2 Allergy status to sulfonamides; Z88.5 Allergy status to narcotic agent; Z88.6 Allergy status to analgesic agent; Z91.010 Allergy to peanuts; Z91.040 Latex allergy status; Z85.3 Personal history of malignant neoplasm of breast; Z79.899 Other long term (current) drug therapy
CPT/HCPCS: 99284; 96374; 96375; J1200; J2270

== ENCOUNTER 2023-07-09 12:00 | Emergency (ER) | payer OTHER, MEDICAID ==
[~2023-07-09] VITALS: Ht 165.1 cm; Wt 54.4 kg
[2023-07-09 12:18] VITALS: BP_SYST 126; PULSE 70; RESP 16; TEMP 97.7; O2SAT 97
[2023-07-09 14:21] VITALS: BP_SYST 101; PULSE 95; RESP 16; TEMP 98.6; O2SAT 96
[2023-07-09] MEDS ORDERED: KETOROLAC TROMETHAMINE 30 MG VIAL IM ONE (15:00)
[2023-07-09] MEDS ORDERED: guaiFENesin/DEXTROMETHORPHAN 10 ML UDC PO ONE (15:00)
== END 2023-07-09 15:46 | disposition left against medical advice (07) ==
LOC: SED 12:00
DX: G89.29 Other chronic pain (principal); J06.9 Acute upper respiratory infection, unspecified; K21.9 Gastro-esophageal reflux disease without esophagitis; Z88.0 Allergy status to penicillin; Z88.2 Allergy status to sulfonamides; Z88.8 Allergy status to other drugs, medicaments and biological substances; Z79.899 Other long term (current) drug therapy
CPT/HCPCS: 99281

== ENCOUNTER 2023-08-28 10:30 | Emergency (ER) | payer OTHER, MEDICAID ==
[~2023-08-28] VITALS: Ht 165.1 cm; Wt 54.4 kg
[2023-08-28 11:00] VITALS: BP_SYST 107; PULSE 99; RESP 18; TEMP 98.1; O2SAT 98
[2023-08-28 11:36] LABS: BASOPHILS % (AUTO) 0.4 % (0.0-2.0); EOSINOPHILS % (AUTO) 0.3 % (0.0-4.0); HEMATOCRIT 32.5 % (36-48); LYMPHOCYTES # (AUTO) 2.2 K/uL (1.0-5.5); LYMPHOCYTES % (AUTO) 39.5 % (20.5-51.5); MEAN CORPUSCULAR HEMOGLOBIN 31 pg (27-31); MEAN CORPUSCULAR HGB CONC 34 % (32-36); MEAN CORPUSCULAR VOLUME 91 fL (79.0-98.0); MONOCYTES # (AUTO) 0.3 K/uL (0.0-1.0); MONOCYTES % (AUTO) 5.2 % (1.7-9.3); NEUTROPHILS % (AUTO) 54.6 % (40.0-70.0); PLATELET COUNT (AUTO) 206 K/uL (130-430); WHITE BLOOD COUNT (AUTO) 5.6 K/uL (4.8-10.8)
[2023-08-28 11:51] LABS: PROTHROMBIN TIME 10.4 SECS (9.5-12.5)
[2023-08-28 11:52] LABS: CALCIUM 9.1 mg/dL (8.4-11.0); CREATININE 0.73 mg/dL (0.55-1.30); POTASSIUM 3.4 mmol/L (3.5-5.1); SERUM HCG (QUALITATIVE) NEGATIVE (NEGATIVE)
[2023-08-28 12:05] LABS: ALBUMIN 4.2 g/dL (3.4-4.8); BILIRUBIN,DIRECT 0.1 mg/dL (0.0-0.3); TOTAL BILIRUBIN 0.2 mg/dL (0.0-1.0); TOTAL PROTEIN, SERUM 7.2 g/dL (6.4-8.3)
[2023-08-28 12:41] LABS: BILIRUBIN,URINE NEGATIVE (NEGATIVE); CLARITY/URINE CLEAR (CLEAR); COLOR,URINE YELLOW (YELLOW); GLUCOSE,URINE NEGATIVE (NEGATIVE); KETONES,URINE NEGATIVE (NEGATIVE); LEUKOCYTE ESTERASE ,URINE NEGATIVE (NEGATIVE); NITRITE, URINE NEGATIVE (NEGATIVE); PROTEIN URINE NEGATIVE (NEGATIVE); UROBILINOGEN,URINE 0.2 (0.2-1.0)
[2023-08-28 12:45] LABS: BLOOD, URINE TRACE (NEGATIVE)
[2023-08-28 12:50] LABS: BACTERIA,URINE RARE /HPF (None Seen); RBC,URINE 0-3 /HPF (0-3); WBC,URINE 0-3 /HPF (0-3)
[2023-08-28 12:51] LABS: MUCUS,URINE 1+ /LPF (None Seen)
[2023-08-28] MEDS ORDERED: OXYC-128 PO (13:43)
[2023-08-28] MEDS ORDERED: ONDA-8 TL (13:43)
[2023-08-28 14:14] VITALS: BP_SYST 107; PULSE 99; RESP 18; TEMP 98.1; O2SAT 98
== END 2023-08-28 13:58 | disposition home or self-care (01) ==
LOC: SED 10:30
DX: R10.13 Epigastric pain (principal); R06.6 Hiccough; K21.9 Gastro-esophageal reflux disease without esophagitis; Z85.3 Personal history of malignant neoplasm of breast; Z88.0 Allergy status to penicillin; Z88.1 Allergy status to other antibiotic agents; Z88.2 Allergy status to sulfonamides; Z88.5 Allergy status to narcotic agent; Z91.040 Latex allergy status; Z88.6 Allergy status to analgesic agent; Z88.8 Allergy status to other drugs, medicaments and biological substances; Z91.018 Allergy to other foods; Z79.899 Other long term (current) drug therapy
CPT/HCPCS: 36415; 76376; 80048; 80076; 81000; 81001; 81015; 82150; 83605; 83690; 84703; 85025; 85610-TC; 85730-TC; 99284

== ENCOUNTER 2024-04-13 11:07 | Emergency (ER) | payer OTHER, MEDICAID ==
[~2024-04-13] VITALS: Ht 165.1 cm; Wt 63.5 kg
[~2024-04-13 11:07] MED LIST changes: +ONDA-8 TL; +OXYC-128 PO
[2024-04-13 11:19] VITALS: BP_SYST 115; PULSE 87; RESP 18; TEMP 98.3; O2SAT 98
[2024-04-13 12:14] LABS: BASOPHILS % (AUTO) 0.1 % (0.0-2.0); EOSINOPHILS % (AUTO) 0.5 % (0.0-4.0); HEMATOCRIT 33.5 % (36-48); HEMOGLOBIN 10.8 g/dL (12.0-16.0); LYMPHOCYTES # (AUTO) 2.1 K/uL (1.0-5.5); LYMPHOCYTES % (AUTO) 35.1 % (20.5-51.5); MEAN CORPUSCULAR HEMOGLOBIN 28 pg (27-31); MEAN CORPUSCULAR HGB CONC 32 % (32-36); MEAN CORPUSCULAR VOLUME 87 fL (79.0-98.0); MONOCYTES # (AUTO) 0.6 K/uL (0.0-1.0); MONOCYTES % (AUTO) 10.2 % (1.7-9.3); NEUTROPHILS # (AUTO) 3.2 K/uL (1.8-7.7); NEUTROPHILS % (AUTO) 54.1 % (40.0-70.0); PLATELET COUNT (AUTO) 240 K/uL (130-430); RED BLOOD CELL COUNT(AUTO) 3.88 MIL/uL (4.2-6.2); RED CELL DISTRIBUTION WIDTH 16.3 % (9.0-15.0); WHITE BLOOD COUNT (AUTO) 5.8 K/uL (4.8-10.8)
[2024-04-13 12:25] LABS: ALBUMIN 3.7 g/dL (3.4-4.8); BILIRUBIN,DIRECT 0.1 mg/dL (0.0-0.3); CALCIUM 8.8 mg/dL (8.4-11.0); CREATININE 0.86 mg/dL (0.55-1.30); POTASSIUM 3.4 mmol/L (3.5-5.1); TOTAL BILIRUBIN 0.5 mg/dL (0.0-1.0); TOTAL PROTEIN, SERUM 6.5 g/dL (6.4-8.3)
[2024-04-13 14:02] LABS: BILIRUBIN,URINE NEGATIVE (NEGATIVE); BLOOD, URINE NEGATIVE (NEGATIVE); CLARITY/URINE CLEAR (CLEAR); COLOR,URINE YELLOW (YELLOW); GLUCOSE,URINE NEGATIVE (NEGATIVE); KETONES,URINE NEGATIVE (NEGATIVE); LEUKOCYTE ESTERASE ,URINE NEGATIVE (NEGATIVE); NITRITE, URINE NEGATIVE (NEGATIVE); PH,URINE 5.5 (5.0-8.0); PROTEIN URINE NEGATIVE (NEGATIVE); UROBILINOGEN,URINE 0.2 (0.2-1.0)
[2024-04-13 14:16] LABS: BARBITURATE, URINE NEGATIVE (NEG <=200); BENZODIAZEPINE, URINE POSITIVE (NEG <=150); CANNABINOID, URINE NEGATIVE (NEG <=50); COCAINE, URINE NEGATIVE (NEG <=150); METHAMPHETAMINES SCREEN,URINE NEGATIVE (NEG <=500); OPIATE, URINE NEGATIVE (NEG <=100); PHENCYCLIDINE SCREEN,URINE NEGATIVE (NEG <=25); URINE AMPHETAMINE NEGATIVE (NEG <=500); URINE METHADONE NEGATIVE (NEG <=200); URINE OXYCODONE SCREEN NEGATIVE (NEG <=100)
[2024-04-13 14:17] LABS: UR TRICYCLIC ANTIDEPRESSANTS NEGATIVE (NEG <=300)
[2024-04-13] MEDS: NACL 0.9% 1,000 ML IV ONE (14:49)
[2024-04-13] MEDS: ONDANSETRON HCL 4 MG/2 ML VIAL IVP ONE (14:50)
[2024-04-13] MEDS: MORPHINE 2 MG/ML INJ. SYRINGE IVP ONE ×2 (14:51→16:40)
[2024-04-13] MEDS: POTASSIUM CHLORIDE 20 MEQ/PKT PACKET PO ONE (14:52)
[2024-04-13 15:19] LABS: COVID19 ANTIGEN SOFIA FIA NEGATIVE (NEGATIVE)
[2024-04-13 15:20] LABS: INFLUENZA TYPE A Negative (NEGATIVE); INFLUENZA TYPE B NEGATIVE (NEGATIVE)
[2024-04-13] MEDS: KCL IV ONE (15:59)
[2024-04-13] MEDS: DIPHENHYDRAMINE INJ 50 MG/ML VIAL IVP ONE (16:40)
[2024-04-13 17:02] VITALS: BP_SYST 112; PULSE 72; RESP 17; TEMP 97.6; O2SAT 99
== END 2024-04-13 17:01 | disposition home or self-care (01) ==
LOC: SED 11:07
DX: E86.0 Dehydration (principal); R10.30 Lower abdominal pain, unspecified; R79.89 Other specified abnormal findings of blood chemistry; E87.6 Hypokalemia; R51.9 Headache, unspecified; Z20.822 Contact with and (suspected) exposure to COVID-19; K21.9 Gastro-esophageal reflux disease without esophagitis; Z85.3 Personal history of malignant neoplasm of breast; Z90.49 Acquired absence of other specified parts of digestive tract; Z98.890 Other specified postprocedural states; Z88.1 Allergy status to other antibiotic agents; Z88.2 Allergy status to sulfonamides; Z88.5 Allergy status to narcotic agent; Z88.6 Allergy status to analgesic agent; Z91.010 Allergy to peanuts; Z91.040 Latex allergy status; Z91.041 Radiographic dye allergy status; Z79.899 Other long term (current) drug therapy; Z79.2 Long term (current) use of antibiotics
CPT/HCPCS: 99285; 70450; 96365; 96375; 96361; 87426; 80307; 80076; 80048; 81001; 83690; 85025; 36415; 74176; 96376; 81025; 81003; 87804 ×2; J1200; J2405; J3480; J2270; J7030